=== PATIENT | male | born 1940 | race Caucasian/White ===

== ENCOUNTER → 2017-01-30 11:25 | Outpatient (CLI) | payer MEDICARE ==
[2013-03-05 11:01] VITALS: BMI 33.0
== END | disposition home or self-care (01) ==
LOC: D.MRI 11:25
DX: M51.36 Other intervertebral disc degeneration, lumbar region (principal)

== ENCOUNTER → 2018-12-18 09:34 | Outpatient (CLI) | payer MEDICARE ==
[2013-03-05 11:01] VITALS: BMI 33.0
== END | disposition home or self-care (01) ==
LOC: D.HCCARDIO 12-04 10:00
DX: I25.10 Atherosclerotic heart disease of native coronary artery without angina pectoris (principal)

== ENCOUNTER → 2019-01-23 10:40 | Outpatient (CLI) | payer MEDICARE ==
[~2019-01-23] VITALS: Ht 177.8 cm; Wt 104.5 kg
--- NOTE | ~2019-01-23 | HEMODYNAMI ---
PATIENT:TYLER LALA MEDICAL RECORD: [id number] : 40 LOCATION:D.CAT ADMISSION DATE: 01/23/19 Generatedon:01/23/201913:42 Patient name: TYLER LALA Patient #: [id number] SSN: : 1940 Date of study: 01/23/2019 Page: Of Hemodynamic Procedure Report Patient Data Patient Demographics Procedure consent was obtained First Name: TYLER Gender: Male Last Name: DAI : 1940 [facility] Initial: N Age: 78 year(s) Patient #: [id number] Race: Unknown Additional ID: [id number] Contact details [address]: [address] [place] [address] State: [place] City: [place] Zip code: [address] Past Medical History Allergies Allergen Reaction Date Comments Reported Other allergy 01/23/2019 N Admission Admission Data Admission Date: 01/23/2019 Admission Time: 10:40 Admit Source: Other Lab Results Lab Result Date: 01/23/2019 Lab Result Time: 0:00 Biochemistry Name Units Result Min Max BUN mg/dl 16 --(---*)-- 7 18 Creatinine mg/dl 0.8 --(-*--)-- 0.6 1.3 CBC Name Units Result Min Max Hemoglobin g/dl 16.5 --(--*-)-- 13.5 17.5 Procedure Procedure Types Cath Procedure Diagnostic Procedure [facility] w/Coronaries PCI Procedure Coronary Stent Coronary Stent Initial Procedure Description Procedure Date Procedure Date: 01/23/2019 Procedure Start Time: 13:11 Procedure End Time: 13:37 Procedure Staff Name Function Jim Flaherty MD Performing Physician Zac Cornelius RT Hospital Nurse Bruna Whittington RT Monitor Emery Bradley RN Nurse Venu Gonzalez RT Scrub Procedure Data Cath Procedure Fluoroscopy Diagnostic fluoroscopy Total fluoroscopy Time: 7.6 time: 7.6 min min Diagnostic fluoroscopy Total fluoroscopy dose: dose: 1297 mGy 1297 mGy Contrast Material Contrast Material Type Amount (ml) Isovue 300 138 Entry Location Entry Primary Successful Side Size Upsize Upsize Entry Closure Succes sful Closure Location (Fr) 1 (Fr) 2 (Fr) Remarks Device Remarks Femoral Right 5 Fr 6 Fr Exoseal artery Short Diagnostic catheters Device Type Used For End Catheter Placement MULTIPACK JL 4.0 5Fr Left Coronary catheter Angiography DIAGNOSTIC AR MOD 5Fr Right Coronary Catheter ([id number]) Angiography DIAGNOSTIC IMT 5Fr SVG Angiography Catheter ([id number]) MULTIPACK Pigtail 5 Fr LV Angiography catheter Procedure Complications No complications Procedure Medications Medication Administration Route Dosage 0.9% NaCl I.V. 100 ml/hr Oxygen etCO2 Nasal cannula 2 l/min Heparin Flush Bag added to field 2 bags (1000units/500ml NS) Lidocaine 2% added to field 20 Versed I.V. 1 mg Fentanyl I.V. 50 mcg Versed I.V. 1 mg Fentanyl I.V. 50 mcg Heparin Bolus I.V. 92289 units Plavix P.O. 600 mg Hemodynamics Rest HGB: 16.5 (g/dl) Heart Rate: 55 (bpm) Pressure Samples Time Site Value (mmHg) Purpose Heart Use Rate(bpm) 13:21 LV 157/2,22 EDP 63 13:22 AO 168/78(115) Pullback 61 13:22 LV 154/6,18 Pullback 61 Gradients Valve Time Site 1 Site 2 Mean SEP/DFP Peak To Heart Use (mmHg) (sec/min) Peak Rate (mmHg) (bpm) Aortic 13:22 LV AO 0 4 0 61 154/6,18 168/78(115) Calculations Valve P-P Mean Valve Index Valve Source Name Gradient Area Flow (cm2) Aortic 0 0 0 0 Snapshots Pre Cath Intra NCS Post Cath Vital Signs Time Heart Resp SPO2 etCO2 NIBP (mmHg) Rhythm Pain Sedation Rate (ipm) (%) (mmHg) Status Level (bpm) 12:55:47 57 10 96 0 152/72(101) NSR 0 (11) 10(A) , No pain 13:00:13 56 16 98 38.5 160/86(136) NSR 0 (11) 10(A) , No pain 13:04:37 56 15 94 40.8 146/83(113) NSR 0 (11) 10(A) , No pain 13:09:46 57 16 96 41.5 161/80(115) NSR 0 (11) 10(A) , No pain 13:14:13 62 14 97 33.4 158/87(129) NSR 0 (11) 10(A) , No pain 13:18:41 64 14 94 41.5 151/79(133) NSR 0 (11) 9(A) , No pain 13:23:07 64 15 96 31.9 152/84(108) NSR 0 (11) 9(A) , No pain 13:27:25 64 16 92 30.4 147/89(108) NSR 0 (11) 9(A) , No pain 13:32:39 64 15 94 31.2 143/80(115) NSR 0 (11) 10(A) , No pain 13:37:38 65 14 98 28.9 162/84(123) NSR 0 (11) 9(A) , No pain Medications Time Medication Route Dose Verified Delivered Reason Note s Effectiveness by by 12:59:52 0.9% NaCl I.V. 100 Emery Emery Per physician ml/hr Kirk Bradley RN RN 13:00:01 Oxygen etCO2 2 Emery Emery for low 02 sats Nasal l/min Kirk Bradley cannula RN RN 13:00:15 Heparin Flush added 2 bags Emery Emery used for Bag to Kirk Bradley procedure (1000units/500ml RN RN NS) 13:00:25 Lidocaine 2% added 20ml Emery Emery for local to vial Kirk Bradley anesthetic RN RN 13:00:54 Versed I.V. 1 mg Emery Emery for sedation Kirk Bradley RN RN 13:01:06 Fentanyl I.V. 50 mcg Emery Emery for sedation Kirk Bradley RN RN 13:12:33 Versed I.V. 1 mg Emery Emery for sedation Kirk Bradley RN RN 13:12:39 Fentanyl I.V. 50 mcg Emery Emery for sedation Kirk Bradley RN RN 13:26:36 Heparin Bolus I.V. 10,500 Emery Emery for units Kirk Bradley anticoagulation RN RN 13:37:08 Plavix P.O. 600 mg Emery Emery for Kirk Bradley antiplatelet RN RN therapy Procedure Log Time Note 12:35:26 Admit Source: Other 12:35:57 Diagnostic Cath status Elective 12:36:01 Zac Cornelius RT(R) sent for patient. Start room use. 12:36:03 Time tracking: Regular hours (M-F 7:00 - 5:00) 12:36:12 Plan of Care:Hemodynamics will remain stable., Cardiac rhythm will remain stable., Comfort level will be maintained., Respiratory function will remain adequate., Patient/ family verbilizes understanding of procedure., Procedure tolerated without complication., Recovers from procedure without complications.. 12:42:23 H&P Date Dictated: 01/07/2019 Within 30 days and on chart., H&P Addendum completed by physician on day of procedure. (MUST COMPLETE FOR ALL OUTPATIENTS). 12:44:05 Patient received from Pre/Post Procedure Room to CCL 1 Alert and oriented. Tansferred to table in Supine position. 12:44:06 Warm blankets applied, and qasim hugger turned on for patient comfort. 12:44:07 Correct patient and procedure confirmed by team. 12:44:08 Signed procedure consent form obtained from patient. 12:44:09 ECG and BP/O2 sat monitors applied to patient. 12:44:10 Pre-procedure instructions explained to patient. 12:44:10 Pre-op teaching completed and patient verbalized understanding. 12:44:11 Family in waiting room. 12:44:12 Patient NPO since Midnight. 12:44:23 Patient allergic to Other allergyPCN 12:54:30 Vital chart was started 12:54:31 Baseline sample Acquired. 12:54:35 Rhythm: sinus rhythm 12:54:37 Full Disclosure recording started 12:54:43 Is the patient allergic to Iodine/contrast media? No. 12:54:46 Is patient on blood thinner?No 12:54:48 Patient diabetic? No. 12:54:49 ----Pre-sedation anethsthesia assessment.---- 12:54:52 Previous problem with sedation/anesthesia? No ? 12:54:54 Snore? Yes 12:55:10 Sleep apnea? Yes 12:55:12 Deviated septum? No 12:55:14 Opens mouth fully? Yes 12:55:19 Sticks out tongue? Yes 12:55:21 Airway obstruction? No ? 12:55:28 Dentures? Yes IN TIGHT 12:55:37 Pre procedure: right dorsailis pedis pulse 1+ Palpable, but thready & weak; easily obliterated 12:55:41 Modified Mahamed's test Ulnar < 7 seconds 12:55:44 Patient pain scale 0/10 ?. 12:55:50 IV patent on arrival in left antecubital with 0.9% NaCl at 10ml/hr. 12:56:13 Lab Result : Creatinine 0.8 mg/dl 12::13 Lab Result : BUN 16 mg/dl 12:56:13 Lab Result : Hemoglobin 16.5 g/dl 12:56:18 Lab results completed and on chart. 12:56:21 Right groin area was prepped with chlora-prep and draped in sterile fashion 12:56:22 Alarms reviewed by R. N. 12:56:23 Sharps counted by scrub and verified by R.N. 12:56:24 Physician arrived 12:56:24 --------ALL STOP TIME OUT------ 12:56:24 Final Timeout: patient, procedure, and site verified with staff and physician. All members of the team are in agreement. 12:56:26 Right groin site verified by team. 12:56:30 Maximum allowable Isovue 300 dose 300ml. Physician notified. (300ml for normal creatinines. For patients with creatinine of 1.7 or higher multiply weight(kg) x 5 divided by creatinine.) 12:56:35 Fire Safety Assessment: A--An alcohol-based skin anteseptic being used preoperatively., C--Open oxygen or nitrous oxide is being used., D--An ESU, laser, or fiber-optic light is being used. 12:56:39 Physical assessment completed. ASA score P 2 - A patient with mild systemic disease as per Jim Flaherty MD. 12:56:43 Sedation plan: IV Moderate Sedation Medication:Versed, Fentanyl 12:59:52 0.9% NaCl 100 ml/hr I.V. was administered by Emery Bradley RN; Per physician; 13:00:01 Oxygen 2 l/min etCO2 Nasal cannula was administered by Emery Bradley RN; for low 02 sats; 13:00:15 Heparin Flush Bag (1000units/500ml NS) 2 bags added to field was administered by Emery Bradley RN; used for procedure; 13:00:25 Lidocaine 2% 20ml vial added to field was administered by Emery Bradley RN; for local anesthetic; 13:00:54 Versed 1 mg I.V. was administered by Emery Bradley RN; for sedation; 13:01:06 Fentanyl 50 mcg I.V. was administered by Emery Bradley RN; for sedation; 13:10:28 Use device set Femoral Dx 13:10:30 ACIST Syringe (21764) opened to sterile field. 13:10:30 Bag Decanter (2002S) opened to sterile field. 13:10:30 Medline Cath Pack ([id number]) opened to sterile field. 13:10:31 DIAGNOSTIC WIRE .035 260cm J wire (738341) opened to sterile field. 13:10:32 ACIST Hand Control (79910) opened to sterile field. 13:10:32 ACIST Manifold (31877) opened to sterile field. 13:10:33 DIAGNOSTIC Multipack 5Fr catheter set (UZ5818) opened to sterile field. 13:10:34 Tegaderm 4 x 4 (1626W) opened to sterile field. 13:10:38 SHEATH 5FR Kevil (HQN661) opened to sterile field. 13:11:26 Procedure started. 13:11:47 Local anesthetic to right femoral artery with Lidocaine 2% by Jim Flaherty MD.INITIAL ACCESS ONLY 13:11:50 Zero performed for pressure channel P1 13:12:07 A 5 Fr sheath was inserted into the Right Femoral artery 13:12:16 A MULTIPACK JL 4.0 5Fr catheter was advanced over the wire and used for Left Coronary Angiography. 13:12:33 Versed 1 mg I.V. was administered by Emery Bradley RN; for sedation; 13:12:39 Fentanyl 50 mcg I.V. was administered by Emery Bradley RN; for sedation; 13:14:12 LCA angiography performed. 13:14:15 Catheter exchanged over wire. 13:14:32 A DIAGNOSTIC AR MOD 5Fr Catheter (756242Y) was advanced over the wire and used for Right Coronary Angiography. 13:15:05 SVG to Circ angiography performed. 13:17:10 RCA angiography performed. 13:18:54 Catheter exchanged over wire. 13:19:04 A DIAGNOSTIC IMT 5Fr Catheter ([id number]) was advanced over the wire and used for SVG Angiography. 13:19:11 MAY to LAD angiography performed. 13:20:50 Catheter exchanged over wire. 13:20:58 A MULTIPACK Pigtail 5 Fr catheter was advanced over the wire and used for LV Angiography. 13:21:01 LV angiography performed. 13:21:30 LV gram done using FONTANA 13:21:48 EF : 60 % 13:21:51 Catheter exchanged over wire. 13:23:35 SHEATH 6FR Kevil (OXW865) opened to sterile field. 13:23:36 BMW 300cm Straight [place] 2 wire (0922758) opened to sterile field. 13:23:36 TUBING High Pressure Extension Tubing (Zoomorama) ([id number]) opened to sterile field. 13:23:37 INFLATOR Merit BasixCompak (JA0974) opened to sterile field. 13:23:54 Sheath upsized to a 6 Fr Short. 13:25:01 GUIDE 6FR AR 1.0 catheter (SY4RN05) opened to sterile field. 13:25:12 6 Fr AR 1 guide catheter was inserted over the wire 13:25:27 BMW 2 wire advanced. 13:26:36 Heparin Bolus 10,500 units I.V. was administered by Emery Bradley RN; for anticoagulation; 13:32:03 Place stent Inflation Number: 1 A INTEGRITY OTW 3.5 X 22 stent ([id number]) was prepped and advanced across the Mid RCA. The stent was deployed at 17 EDUARDO for 0:19 (min:sec). 13:33:00 Stent catheter was removed intact over wire. 13:35:32 Procedure type changed to Cath procedure, Diagnostic procedure, LHC, LHC w/Coronaries, PCI procedure, Coronary Stent, Coronary Stent Initial 13:35:54 Sheath removed intact; hemostasis achieved with Exoseal to the Right Femoral artery. 13:35:56 Procedure ended.(Physican Out) 13:36:10 Fluoroscopy time 07.60 minutes. 13:36:16 Fluoroscopy dose: 1297 mGy 13:36:16 Flurop Dose total: 1297 13:36:28 Contrast amount:Isovue 300 138ml. 13:36:30 Sharps counted by scrub and verified by R.N. 13:36:31 Insertion/operative site no bleeding no hematoma. 13:36:34 Post-op/insertion site Right Femoral artery dressed using a 4 x 4 and Tegaderm. 13:36:37 Post right femoral artery:stable 13:36:38 Post Procedure Pulses reassessed and unchanged 13:36:41 Post procedure: right dorsailis pedis pulse 2+ Normal; easily identifiable; not easily obliterated. 13:36:45 Post procedure rhythm: sinus rhythm 13:36:47 Post procedure instruction explained to patient.Patient verbalizes understanding. 13:36:48 Procedure and supply charges have been captured, reviewed, submitted and are correct. 13:36:54 Procedure Complication : No complications 13:37:00 Vital chart was stopped 13:37:00 See physician's report for complete and final results. 13:37:04 Report given to Pre/Post Procedure Room. 13:37:07 Patient transfered to Pre/Post Procedure Room with Stretcher. 13:37:08 Plavix 600 mg P.O. was administered by Emery Bradley RN; for antiplatelet therapy; 13:37:09 Procedure ended. 13:37:09 Full Disclosure recording stopped 13:37:18 ACC-PCI Only Patient was given prescriptions, or instructed by Jim Flaherty MD to start/continue the following medications upon discharge: Plavix 13:37:23 End room use (Document Last) 13:39:10 EXOSEAL 6Fr (EX600) opened to sterile field. Intervention Summary Intervention Notes Time ActionType Lesion and Equipment Action# Pressure Duration Attributes Used 13:32:03 Place stent Mid RCA INTEGRITY 1 17 00:20 OTW 3.5 X 22 stent ([id number]) Device Usage Item Name Manufacture Quantity Catalog Number Hospital Part Current Minim al Lot# / Charge Number Stock Stock Serial# Code ACIST Acist 1 64354 343421 519430 015452 20 Syringe Medical (83350) Systems Inc Bag Microtek 1 661608 35803 074498 5 Decanter Medical Inc. () Medline Medline 1 [id number] 304025 00948 038790 5 Cath Pack ([id number]) DIAGNOSTIC St Hay 1 415590 152903 200872 269920 30 WIRE .035 260cm J wire (509371) ACIST Hand Acist 1 01077 601473 914936 717638 5 Control Medical (72114) Systems Inc ACIST Acist 1 62288 913208 899790 754964 5 Manifold Medical (01498) Systems Inc DIAGNOSTIC Cardinal 1 FO9102 307476 29087 646210 30 Multipack Health 5Fr catheter set (TC6662) Tegaderm 4 3M 1 1626W 969034 115816 219483 5 x 4 (1626W) SHEATH 5FR Terumo 1 RZC483 676789 575936 440141 5 Kevil (ACR926) MULTIPACK Cardinal 1 270716 5 JL 4.0 5Fr Health catheter DIAGNOSTIC Cardinal 1 [id number] 279874 514553 959181 15 AR MOD 5Fr Health Catheter (870751H) DIAGNOSTIC [place] 1 [id number] 964161 143099 20428 5 IMT 5Fr Scientific Catheter ([id number]) MULTIPACK Cardinal 1 887453 5 Pigtail 5 Health Fr catheter SHEATH 6FR Terumo 1 TOE647 943405 482126 122415 40 Kevil (VUJ563) BMW 300cm [place] 1 8075864 500156 274069 702322 5 Straight Vascular [place] 2 wire (9279245) TUBING High Merit 1 [id number] 745836 03347 178733 10 Pressure Medical Extension Tubing (Flaherty) ([id number]) INFLATOR Merit 1 ZR6511 819701 412601 235693 15 Merit Medical BasixCompak (JX4044) GUIDE 6FR Medtronic 1 IQ9DB57 534221 56508 832517 1 AR 1.0 catheter (VP3KE63) INTEGRITY Medtronic 1 [id number] 136230 643873 911709 3 [id number] OTW 3.5 X 22 stent ([id number]) EXOSEAL 6Fr Cardinal 1 EX600 157066 399935 770018 10 (EX600) Health Signature Audit [place] Stage Time Signature Unsigned Intra-Procedure 01/23/2019 Zac CALLAWAY(Dante) 1:42:16 PM Signatures Monitor : Bruna Signature : Counts RT Date : Time : [facility] [address] [place] [address]
[~2019-01-23 10:40] MED LIST: BAYER CHEWABLE81 MG PO; FUROSEMIDE20 MG PO; LOSARTAN/HCT TAB 50-; NORVASC5 MG PO; OMEPRAZOLE40 MG PO; PLAVIX75 MG PO; TENORMIN50 MG PO; ZOCOR10 MG PO; ZOLOFT50 MG PO
[2019-01-23 11:07] VITALS: BP 145/81; Ht 177.8 cm; Wt 104.5 kg
[2019-01-23 11:15] LABS: BASOPHILS 0.3 % (0-2); EOSINOPHILS 1.9 % (0-7); HEMATOCRIT 48.3 % (42.0-54.0); HEMOGLOBIN 16.5 g/dL (13.5-17.5); IMMATURE GRANULOCYTES 0.4 % (0-5); LYMPHOCYTES 17.6 % (15-50); MCH 31.5 pg (26.0-34.0); MCHC 34.2 g/dL (31.0-37.0); MCV 92.4 fL (80.0-100.0); MEAN PLATELET VOLUME 9.7 fL (7.4-10.4); MONOCYTES 7.2 % (2-11); NEUTROPHILS 72.6 % (40-80); PLATELET COUNT 127 10x3/uL (130-400); RBC 5.23 10x6/uL (4.20-6.10); RDW 13.4 % (11.5-14.5); WBC 7.9 10x3/uL (4.8-10.8)
[2019-01-23 11:29] LABS: CALC OSMOLALITY 281 mosm/kg (275-300); CARBON DIOXIDE 28.6 mmol/L (21.0-32.0); CHLORIDE - SERUM 106 mmol/L (98-107); CREATININE - SERUM 0.8 mg/dL (0.6-1.3); GLUCOSE 103 mg/dL (74-106); POTASSIUM - SERUM 3.7 mmol/L (3.5-5.1); SODIUM 141 mmol/L (136-145); UREA NITROGEN 16 mg/dL (7-18); eGFR NON AFRICAN AMERICAN > 90 mL/min (90-120)
--- NOTE | 2019-01-23 14:05 | NUR ---
RIGHT GROIN DRESSING C/D/I. NO S/S OF HEMATOMA NOTED. RIGHT PEDAL PULSE PALPABLE. VSS.
--- NOTE | 2019-01-23 14:35 | NUR ---
RIGHT GROIN DRESSING C/D/I. NO S/S OF HEMATOMA NOTED. RIGHT PEDAL PULSE PALPABLE. PT VOIDED IN URINAL 300CC OF CLEAR YELLOW URINE. NO OTHER NEEDS AT THIS TIME.
--- NOTE | 2019-01-23 15:06 | NUR ---
RIGHT GROIN DRESSING C/D/I. NO S/S OF HEMATOMA NOTED. VSS. NO NEEDS AT THIS TIME.
--- NOTE | 2019-01-23 15:35 | NUR ---
RIGHT GROIN DRESSING C/D/I. NO S/S OF HEMATOMA NOTED. RIGHT PEDAL PULSE PALPABLE. NO NEEDS AT THIS TIME. VSS.
--- NOTE | 2019-01-23 16:45 | NUR ---
PT'S HEAD OF BED INC TO 30 DEGREES. PT TOLERATED WELL. RIGHT GROIN DRESSING C/D/I. NO S/S OF HEMATOMA NOTED. VSS. PT SET UP WITH SANDWICH TRAY AND DRINK. DENIES NAUSEA. FAMILY AT BEDSIDE. CALL LIGHT WITHIN REACH.
--- NOTE | 2019-01-23 17:15 | NUR ---
LEFT ARM PIV D/C'D WITH CATH TIP INTACT. PT TOLERATED WELL. RIGHT GROIN DRESSING C/D/I. NO S/S OF HEMATOMA. PT INSTRUCTED TO GET DRESSED. AT BEDSIDE TO ASSIST.
--- NOTE | 2019-01-23 17:30 | NUR ---
DISCUSSED DISCHARGE INSTRUCTIONS WITH PT AND PT'S FAMILY. THEY VOICED UNDERSTANDING.
--- NOTE | 2019-01-23 17:40 | NUR ---
PT TAKEN OUT TO VEHICLE BY WHEELCHAIR. NO S/S OF DISTRESS NOTED. ALL BELONGINGS AND DISCHARGE INSTRUCTIONS IN HAND.
== END | disposition home or self-care (01) ==
LOC: D.CATH 10:40
PROVIDERS: ATTEND Internal Medicine Cardiovascular Disease
DX: I25.110 Atherosclerotic heart disease of native coronary artery with unstable angina pectoris (principal); Z95.1 Presence of aortocoronary bypass graft; Z01.812 Encounter for preprocedural laboratory examination

== ENCOUNTER → 2019-07-09 07:51 | Outpatient (CLI) | payer MEDICARE ==
[2019-01-23 11:07] VITALS: BMI 33.0
[~2019-07-09 07:51] MED LIST changes: +COUMADIN6 MG PO; +ELIQUIS5 MG PO; +LOVENOX INJ100 MG/ML SC
== END | disposition home or self-care (01) ==
LOC: D.CT 07:51
PROVIDERS: ATTEND Family Medicine
DX: R06.02 Shortness of breath (principal)

== ENCOUNTER → 2019-07-12 14:13 | Outpatient (CLI) | payer MEDICARE ==
[2019-01-23 11:07] VITALS: BMI 33.0
[2019-07-12 16:29] LABS: CREATININE - SERUM 0.9 mg/dL (0.6-1.3)
== END | disposition home or self-care (01) ==
LOC: D.US 14:13
PROVIDERS: ATTEND Internal Medicine Pulmonary Disease
DX: I26.99 Other pulmonary embolism without acute cor pulmonale (principal)

== ENCOUNTER 2019-07-12 17:26 | Inpatient (IN) | payer MEDICARE ==
[~2019-07-12] VITALS: Ht 177.8 cm; Wt 103.2 kg
[~2019-07-12 17:26] MED LIST changes: -COUMADIN6 MG PO; -ELIQUIS5 MG PO; -LOVENOX INJ100 MG/ML SC
[2019-07-12 18:23] LABS: BASOPHILS 0.2 % (0-2); HEMATOCRIT 49.1 % (42.0-54.0); HEMOGLOBIN 16.6 g/dL (13.5-17.5); IMMATURE GRANULOCYTES 0.5 % (0-5); LYMPHOCYTES 20.7 % (15-50); MCH 31.3 pg (26.0-34.0); MCHC 33.8 g/dL (31.0-37.0); MCV 92.6 fL (80.0-100.0); MEAN PLATELET VOLUME 10.2 fL (7.4-10.4); MONOCYTES 10.6 % (2-11); PLATELET COUNT 115 10x3/uL (130-400); RDW 13.9 % (11.5-14.5); WBC 9.5 10x3/uL (4.8-10.8)
[2019-07-12 18:41] LABS: ALBUMIN 2.9 g/dL (3.4-5.0); ALKALINE PHOSPHATASE 95 U/L (46-116); ALT (SGPT) 22 U/L (10-68); CALC OSMOLALITY 282 mosm/kg (275-300); CALCIUM 10.2 mg/dL (8.5-10.1); CARBON DIOXIDE 30.2 mmol/L (21.0-32.0); CHLORIDE - SERUM 104 mmol/L (98-107); CREATININE - SERUM 0.8 mg/dL (0.6-1.3); GLUCOSE 100 mg/dL (74-106); POTASSIUM - SERUM 3.8 mmol/L (3.5-5.1); SODIUM 142 mmol/L (136-145); UREA NITROGEN 12 mg/dL (7-18); eGFR NON AFRICAN AMERICAN > 90 mL/min (90-120)
[2019-07-12 18:52] LABS: APTT 27.3 SECONDS (22.8-39.4); INR 1.08 (0.85-1.17); PROTIME 13.5 SECONDS (11.6-15.0)
[2019-07-12 20:34] VITALS: BP 148/80; Ht 177.8 cm; Wt 103.2 kg
[2019-07-12 20:38] VITALS: BP 148/80
[2019-07-12 23:15] VITALS: BP 127/70
[2019-07-13 04:30] VITALS: BP 134/82
[2019-07-13 05:25] LABS: BASOPHILS 0.4 % (0-2); EOSINOPHILS 2.8 % (0-7); HEMATOCRIT 45.1 % (42.0-54.0); HEMOGLOBIN 15.2 g/dL (13.5-17.5); IMMATURE GRANULOCYTES 0.7 % (0-5); LYMPHOCYTES 22.3 % (15-50); MCH 30.8 pg (26.0-34.0); MCHC 33.7 g/dL (31.0-37.0); MCV 91.5 fL (80.0-100.0); MEAN PLATELET VOLUME 9.6 fL (7.4-10.4); MONOCYTES 11.3 % (2-11); NEUTROPHILS 62.5 % (40-80); PLATELET COUNT 105 10x3/uL (130-400); RBC 4.93 10x6/uL (4.20-6.10); RDW 13.5 % (11.5-14.5)
[2019-07-13 05:26] LABS: WBC 5.4 10x3/uL (4.8-10.8)
[2019-07-13 05:34] LABS: ALBUMIN 2.6 g/dL (3.4-5.0); ALKALINE PHOSPHATASE 85 U/L (46-116); ALT (SGPT) 17 U/L (10-68); BILIRUBIN - TOTAL 0.83 mg/dL (0.2-1.3); CALC OSMOLALITY 284 mosm/kg (275-300); CALCIUM 9.9 mg/dL (8.5-10.1); CARBON DIOXIDE 28.7 mmol/L (21.0-32.0); CHLORIDE - SERUM 108 mmol/L (98-107); CREATININE - SERUM 0.7 mg/dL (0.6-1.3); GLUCOSE 120 mg/dL (74-106); MAGNESIUM - SERUM 2.2 mg/dL (1.8-2.4); PHOSPHOROUS 2.7 mg/dL (2.5-4.9); POTASSIUM - SERUM 3.3 mmol/L (3.5-5.1); PROTEIN - SERUM 5.4 g/dL (6.4-8.2); SODIUM 143 mmol/L (136-145); UREA NITROGEN 10 mg/dL (7-18); eGFR NON AFRICAN AMERICAN > 90 mL/min (90-120)
[2019-07-13 09:02] VITALS: BP 123/59
--- NOTE | 2019-07-13 10:10 | MORECARE ---
CASE MANAGEMENT DISCHARGE SUMMARY PATIENT: TYLER LALA UNIT: [id number] ADM DATE: 07/12/19 AGE: 79 : 40 SEX: M ROOM/BED: D.2781 AUTHOR: ROBINSON ZAPATA PHYSICIAN: REFERRING PHYSICIAN: JAMARI DEL REAL MD DATE OF SERVICE: 07/13/19 Discharge Plan Patient Name: TYLER LALA Facility: [facility]:[place] : 1940 Planned Disposition: Home Anticipated Discharge Date: 07/16/19 Discharge Date: Expected LOS: 4 Initial Reviewer: [email or web address] Initial Review Date: 07/12/2019 Generated: 07/13/19 11:10 am DCP- Discharge Planning Updated by [email or web address]: Shadia Jacob on 07/13/19 9:[address] Patient Name: TYLER LALA Admission Status: ER Accout number: [id number] Admission Date: 07-12-2019 : 1940 Admission Diagnosis: Attending: JAMARI DEL REAL Current LOS: 1 Anticipated DC Date: 07-16-2019 Planned Disposition: Home Primary Insurance: MEDICARE A & B DC PLAN: Home with if medically able. ANTICIPATED DC NEEDS: Unsure at this time. Stated it depends on how he is doing medically. CM met with patient to complete initial dc planning assessment. CM educated patient on the CM role and verbal consent given by patient to complete assessment. CM verified patient's address, phone number, and emergency contact phone numbers. Patient lives at home with his and reports he is independent in his care at home. At discharge patient stated he couldn't answer this question until he knows how he is doing medically. CM discussed availability of home health, rehab services, and medical equipment. Patient is unsure what discharge needs he will have at this time. Patient reports if he goes home his will transport him home at time of discharge. CM will continue to follow and will assist as needed with dc plans/needs. Youth Development Specialist: Shadia Jacob RN, [facility] DCPIA - Discharge Planning Initial Assessment Updated by [email or web address]: Shadia Jacob on 07/13/19 10:07 am * Is the patient Alert and Oriented? Yes * How many steps to enter\exit or inside your home? one * PCP Dr. Ofelia Cheney and Dr. Dominique * Pharmacy [facility] - [facility] * Preadmission Environment Home with Family * ADLs Independent * Equipment Cane CPAP Nebulizer Oxygen Rolling Walker Wheelchair * Other Equipment [facility] - For DME needs. * List name and contact numbers for known caregivers / representatives who currently or will assist patient after discharge: Rosetta Lala - - [phone] * Verbal permission to speak to the caregivers and representatives has been obtained from the patient. Yes * Community resources currently utilized None * Additional services required to return to the preadmission environment? No * Can the patient safely return to the preadmission environment? Yes * Has this patient been hospitalized within the prior 30 days at any hospital? No Patient Name: TYLER LALA Page 00091 at 1010 All edits/amendments must be made on the electronic document DICTATION DATE: 07/13/19 1010 QUALIFICATION ENGINEER: ANGELA 07/13/19 1010 RPT#: [id number] DC DATE: STATUS: ADM IN [facility] [address] [place] [address] END OF REPORT
[2019-07-13 17:47] VITALS: BP 129/75
[2019-07-13 20:00] VITALS: BP 146/72
[2019-07-13 20:35] VITALS: BP 133/74
[2019-07-14] VITALS: BP 150/75
[2019-07-14 04:00] VITALS: BP 142/78
[2019-07-14 04:43] LABS: BASOPHILS 0.4 % (0-2); EOSINOPHILS 2.3 % (0-7); HEMATOCRIT 45.2 % (42.0-54.0); HEMOGLOBIN 15.3 g/dL (13.5-17.5); IMMATURE GRANULOCYTES 0.4 % (0-5); LYMPHOCYTES 18.2 % (15-50); MCH 31.1 pg (26.0-34.0); MCHC 33.8 g/dL (31.0-37.0); MCV 91.9 fL (80.0-100.0); MEAN PLATELET VOLUME 9.9 fL (7.4-10.4); MONOCYTES 8.8 % (2-11); NEUTROPHILS 69.9 % (40-80); PLATELET COUNT 117 10x3/uL (130-400); RBC 4.92 10x6/uL (4.20-6.10); RDW 13.7 % (11.5-14.5); WBC 5.6 10x3/uL (4.8-10.8)
[2019-07-14 04:56] LABS: CALC OSMOLALITY 285 mosm/kg (275-300); CARBON DIOXIDE 26.7 mmol/L (21.0-32.0); CHLORIDE - SERUM 109 mmol/L (98-107); CREATININE - SERUM 0.6 mg/dL (0.6-1.3); GLUCOSE 120 mg/dL (74-106); POTASSIUM - SERUM 3.7 mmol/L (3.5-5.1); SODIUM 144 mmol/L (136-145); eGFR NON AFRICAN AMERICAN > 90 mL/min (90-120)
[2019-07-14 05:01] LABS: UREA NITROGEN 6 mg/dL (7-18)
[2019-07-14 08:00] VITALS: BP 139/66
[2019-07-14 09:21] LABS: APPEARANCE CLEAR (CLEAR); BILIRUBIN NEGATIVE (NEGATIVE); COLOR YELLOW (YELLOW); GLUCOSE NEGATIVE (NEGATIVE); KETONE NEGATIVE (NEGATIVE); NITRITE NEGATIVE (NEGATIVE); PROTEIN NEGATIVE (NEGATIVE); SPECIFIC GRAVITY 1.005 (1.005-1.020); UROBILINOGEN NORMAL (NORMAL)
[2019-07-14 12:30] VITALS: BP 129/70
[2019-07-14 16:30] VITALS: BP 139/74
[2019-07-14 20:00] VITALS: BP 160/67
[2019-07-15] VITALS: BP 161/93
[2019-07-15 04:00] VITALS: BP 126/64
[2019-07-15 05:33] LABS: BASOPHILS 0.4 % (0-2); EOSINOPHILS 3.5 % (0-7); HEMATOCRIT 45.1 % (42.0-54.0); HEMOGLOBIN 15.1 g/dL (13.5-17.5); IMMATURE GRANULOCYTES 0.2 % (0-5); LYMPHOCYTES 20.8 % (15-50); MCHC 33.5 g/dL (31.0-37.0); MCV 92.6 fL (80.0-100.0); MEAN PLATELET VOLUME 9.7 fL (7.4-10.4); MONOCYTES 9.7 % (2-11); NEUTROPHILS 65.4 % (40-80); PLATELET COUNT 127 10x3/uL (130-400); RBC 4.87 10x6/uL (4.20-6.10); WBC 5.5 10x3/uL (4.8-10.8)
[2019-07-15 06:17] LABS: CALC OSMOLALITY 282 mosm/kg (275-300); CALCIUM 10.2 mg/dL (8.5-10.1); CARBON DIOXIDE 27.4 mmol/L (21.0-32.0); CHLORIDE - SERUM 107 mmol/L (98-107); CREATININE - SERUM 0.7 mg/dL (0.6-1.3); GLUCOSE 109 mg/dL (74-106); POTASSIUM - SERUM 3.4 mmol/L (3.5-5.1); SODIUM 142 mmol/L (136-145); UREA NITROGEN 9 mg/dL (7-18); eGFR NON AFRICAN AMERICAN > 90 mL/min (90-120)
[2019-07-15 08:25] VITALS: BP 141/73
[2019-07-15 12:22] VITALS: BP 128/73
[2019-07-15 16:35] VITALS: BP 120/71
[2019-07-15 20:00] VITALS: BP 133/73
[2019-07-16 00:01] VITALS: BP 123/70
[2019-07-16 04:00] VITALS: BP 138/74
[2019-07-16 06:31] LABS: CALC OSMOLALITY 283 mosm/kg (275-300); CALCIUM 10.3 mg/dL (8.5-10.1); CARBON DIOXIDE 29.7 mmol/L (21.0-32.0); CHLORIDE - SERUM 109 mmol/L (98-107); CREATININE - SERUM 0.7 mg/dL (0.6-1.3); GLUCOSE 122 mg/dL (74-106); SODIUM 143 mmol/L (136-145); UREA NITROGEN 8 mg/dL (7-18); eGFR NON AFRICAN AMERICAN > 90 mL/min (90-120)
[2019-07-16 06:52] LABS: BASOPHILS 0.3 % (0-2); EOSINOPHILS 3.5 % (0-7); HEMATOCRIT 44.9 % (42.0-54.0); IMMATURE GRANULOCYTES 0.3 % (0-5); LYMPHOCYTES 17.6 % (15-50); MCH 30.9 pg (26.0-34.0); MCHC 33.4 g/dL (31.0-37.0); MCV 92.4 fL (80.0-100.0); MEAN PLATELET VOLUME 10.1 fL (7.4-10.4); MONOCYTES 8.4 % (2-11); NEUTROPHILS 69.9 % (40-80); PLATELET COUNT 135 10x3/uL (130-400); RBC 4.86 10x6/uL (4.20-6.10); RDW 13.8 % (11.5-14.5); WBC 5.7 10x3/uL (4.8-10.8)
[2019-07-16 08:00] VITALS: BP 139/83
[2019-07-16 12:00] VITALS: BP 110/70
[2019-07-16] MEDS ORDERED: ELIQUIS5 MG PO (12:18)
--- NOTE | 2019-07-17 08:02 | MORECARE ---
CASE MANAGEMENT DISCHARGE SUMMARY PATIENT: TYLER LALA UNIT: [id number] ADM DATE: 07/12/19 AGE: 79 : 40 SEX: M ROOM/BED: D.2862 AUTHOR: [email or web address] PHYSICIAN: REFERRING PHYSICIAN: JAMARI DEL REAL MD DATE OF SERVICE: 07/17/19 Discharge Plan Patient Name: TYLER LALA Facility: [facility]:[place] : 1940 Planned Disposition: Home Anticipated Discharge Date: 07/16/19 Discharge Date: 07/16/2019 Expected LOS: 4 Initial Reviewer: [email or web address] Initial Review Date: 07/12/2019 Generated: 07/17/19 9:01 am DCP- Discharge Planning Updated by [email or web address]: Shadia Jacob on 07/13/19 9:[address] Patient Name: TYLER LALA Admission Status: ER Accout number: [id number] Admission Date: 07-12-2019 : 1940 Admission Diagnosis: Attending: JAMARI DEL REAL Current LOS: 1 Anticipated DC Date: 07-16-2019 Planned Disposition: Home Primary Insurance: MEDICARE A & B DC PLAN: Home with if medically able. ANTICIPATED DC NEEDS: Unsure at this time. Stated it depends on how he is doing medically. CM met with patient to complete initial dc planning assessment. CM educated patient on the CM role and verbal consent given by patient to complete assessment. CM verified patient's address, phone number, and emergency contact phone numbers. Patient lives at home with his and reports he is independent in his care at home. At discharge patient stated he couldn't answer this question until he knows how he is doing medically. CM discussed availability of home health, rehab services, and medical equipment. Patient is unsure what discharge needs he will have at this time. Patient reports if he goes home his will transport him home at time of discharge. CM will continue to follow and will assist as needed with dc plans/needs. Social Service Assistant: Shadia Jacob RN, [facility] DCPIA - Discharge Planning Initial Assessment Updated by [email or web address]: Shadia Jacob on 07/13/19 10:07 am * Is the patient Alert and Oriented? Yes * How many steps to enter\exit or inside your home? one * PCP Dr. Ofelia Cheney and Dr. Dominique * Pharmacy [facility] 7 - [facility] * Preadmission Environment Home with Family * ADLs Independent * Equipment Cane CPAP Nebulizer Oxygen Rolling Walker Wheelchair * Other Equipment [facility] - For DME needs. * List name and contact numbers for known caregivers / representatives who currently or will assist patient after discharge: Rosetta Lala - - [phone] * Verbal permission to speak to the caregivers and representatives has been obtained from the patient. Yes * Community resources currently utilized None * Additional services required to return to the preadmission environment? No * Can the patient safely return to the preadmission environment? Yes * Has this patient been hospitalized within the prior 30 days at any hospital? No Last DP export: 07/13/19 9:10 a Patient Name: TYLER LALA Page 67981 at 0802 All edits/amendments must be made on the electronic document DICTATION DATE: 07/17/19800 CAPTAIN WAITER: ANGELA 07/17/19800 RPT#: [id number] DC DATE:07/16/19 STATUS: DIS IN [facility] [address] [place] [address] END OF REPORT
[2019-07-17 11:10] LABS: HAPTOGLOBIN 170 mg/dL (34-200)
[2019-07-17 12:09] LABS: ACLA - IGG AB <9 GPL U/mL (0-14); ACLA - IGM AB <9 MPL U/mL (0-12)
[2019-07-17 13:10] LABS: ANA REFLEX - DIRECT Negative (Negative)
[2019-07-18 10:11] LABS: PROTEIN S - FREE 73 % (57-157); PROTEIN S - TOTAL 84 % (60-150)
[2019-07-18 11:10] LABS: PROTEIN S - FREE 76 % (57-157); PROTEIN S - FUNCTIONAL 89 % (63-140); PROTEIN S - TOTAL 76 % (60-150)
[2019-07-18 12:10] LABS: LUPUS - INTERPRETATION Comment: (()); LUPUS - THROMBIN TIME 19.8 sec (0.0-23.0); LUPUS - dRVVT 40.2 sec (0.0-47.0); PTT-LA 44.3 sec (0.0-51.9)
[2019-07-19 15:10] LABS: ANCA - ANTIMYELOPEROXIDASE <9.0 U/mL (0.0-9.0); ANCA - ANTIPROTEINASE 3 <3.5 U/mL (0.0-3.5); ANCA - ATYPICAL <1:20 titer (Neg:<1:20); ANCA - CYTOPLASMIC <1:20 titer (Neg:<1:20); ANCA - PERINUCLEAR <1:20 titer (Neg:<1:20)
[2019-07-19 16:08] LABS: FACTOR II DNA ANALYSIS Negative (())
[2019-07-24 03:07] LABS: PROTEIN C - ANTIGEN 112 % (60-150); PROTEIN C - FUNCTIONAL 113 % (73-180)
== END 2019-07-16 14:58 | disposition home or self-care (01) | DRG 175 ==
LOC: D.ER 17:26 → D.M2 19:15 → D.SDCHOLD 07-16 13:50 → D.M2 07-16 13:50
PROVIDERS: Family Medicine; Internal Medicine Pulmonary Disease; ADMIT Internal Medicine Nephrology; ATTEND Internal Medicine Nephrology
DX: I26.99 Other pulmonary embolism without acute cor pulmonale (principal); J96.21 Acute and chronic respiratory failure with hypoxia; I82.411 Acute embolism and thrombosis of right femoral vein; I82.431 Acute embolism and thrombosis of right popliteal vein; J98.11 Atelectasis; I10 Essential (primary) hypertension; K21.9 Gastro-esophageal reflux disease without esophagitis; I25.10 Atherosclerotic heart disease of native coronary artery without angina pectoris; E87.6 Hypokalemia; E66.9 Obesity, unspecified; N40.0 Benign prostatic hyperplasia without lower urinary tract symptoms; K58.9 Irritable bowel syndrome, unspecified

== ENCOUNTER 2019-07-21 07:17 | Inpatient (IN) | payer MEDICARE ==
[~2019-07-21] VITALS: Ht 177.8 cm; Wt 98.9 kg
--- NOTE | ~2019-07-21 | HEMODYNAMI ---
PATIENT:TYLER LALA MEDICAL RECORD: [id number] : 40 LOCATION:D.SD D.2228 ADMISSION DATE: 07/21/19 Generatedon:07/22/201911:41 Patient name: TYLER LALA Patient #: [id number] SSN: : 1940 Date of study: 07/22/2019 Page: Of Hemodynamic Procedure Report Patient Data Patient Demographics Procedure consent was obtained First Name: TYLER Gender: Male Last Name: DAI : 1940 Middle Initial: N Age: 79 year(s) Patient #: [id number] Race: Unknown Additional ID: [id number] Contact details [address]: [address] [place] [address] State: [place] City: [place] Zip code: [address] Past Medical History Allergies Allergen Reaction Date Comments Reported Other allergy 01/23/2019 PCN Penicillins 07/22/2019 Admission Admission Data Admission Date: 07/21/2019 Admission Time: 11:57 Room #: D.2228 Height (in.): 70 BSA: 2.17 (m2) Height (cm.): 177.8 BMI: 31.28 (kg/m2) Weight (lbs.): 218 Weight (kg.): 98.88 Procedure Procedure Types Cath Procedure Peripheral Cath Diagnostic Procedure Sap Ppm Consultant Peripheral Procedures Venography IVC/SVC Inferior Venacava Filter Procedure Description Procedure Date Procedure Date: 07/22/2019 Procedure Start Time: 11:06 Procedure Staff Name Function Amarjit Meyer MD Performing Physician Kylie Bhatt RT [place]in Cleaning Supervisor Huma Cortez RN Nurse Lexi Atwood RN Nurse Chris Campos RT Scrub Procedure Data Cath Procedure Fluoroscopy Diagnostic fluoroscopy Total fluoroscopy Time: 3.3 time: 3.3 min min Diagnostic fluoroscopy Total fluoroscopy dose: 426 dose: 426 mGy mGy Contrast Material Contrast Material Type Amount (ml) Isovue 300 85 Procedure Medications Medication Administration Route Dosage Heparin Flush Bag added to field 2 bags (1000units/500ml NS) Lidocaine 1% added to field 20 Fentanyl I.V. 50 mcg Versed I.V. 1 mg Versed I.V. 0.5 mg Fentanyl I.V. 25 mcg Hemodynamics Rest BSA: 2.17 (m2) O2 Consumption: Estimated: 252.85 (ml/min) O2 Consumption indexed : Estimated:116.52 (ml/min/m) Heart Rate: 76 (bpm) Snapshots Pre Cath Intra NCS Post Cath Vital Signs Time Heart Resp SPO2 etCO2 NIBP (mmHg) Rhythm Pain Sedation Rate (ipm) (%) (mmHg) Status Level (bpm) 11:05:58 83 24 98 29.3 138/86(129) NSR 0 (11) 10(A) , No pain 11:10:12 74 25 98 27 137/81(126) NSR 0 (11) 10(A) , No pain 11:14:24 75 98 18 133/90(117) NSR 0 (11) 8(A) , No pain 11:18:34 74 18 97 4.5 141/87(119) NSR 0 (11) 8(A) , No pain 11:22:48 73 97 9.7 128/83(111) NSR 0 (11) 8(A) , No pain 11:26:58 74 97 12 127/82(116) NSR 0 (11) 8(A) , No pain 11:31:04 73 23 98 21.8 139/92(128) NSR 0 (11) 8(A) , No pain 11:35:18 72 14 96 15.8 131/79(110) NSR 0 (11) 8(A) , No pain 11:39:28 73 21 97 9.7 128/85(114) NSR 0 (11) 8(A) , No pain Medications Time Medication Route Dose Verified Delivered Reason Notes Effec tiveness by by 11:04:20 Heparin Flush added 2 Amarjit used for Bag to bags Meyer procedure (1000units/500ml field DIOR NS) 11:04:33 Lidocaine 1% added 20ml Amarjit used for to vial Meyer procedure field DIOR 11:12:01 Fentanyl I.V. 50 Amarjit Finn for mcg Mitch Cortez RN sedation 11:12:14 Versed I.V. 1 mg Amarjit Finn for Mitch Cortez RN sedation 11:29:04 Versed I.V. 0.5 Amarjit Finn for mg Mitch Cortez RN sedation 11:29:41 Fentanyl I.V. 25 Amarjit Finn for mcg Mitch Cortez RN sedation Procedure Log Time Note 10:29:40 Patient Height : 70 inches 10:29:44 Patient Weight : 218 lbs 10:30:13 Use device set IR Diagnostic 10:30:15 Tegaderm 4 x 4 (1626W) opened to sterile field. 10:30:16 Sterile Angiographic Pack opened to sterile field. 10:30:18 Bag Decanter (2002S) opened to sterile field. 10:30:19 ACIST Manifold (18023) opened to sterile field. 10:30:20 ACIST Hand Control (42819) opened to sterile field. 10:30:21 ACIST Syringe (01799) opened to sterile field. 10:30:39 DOC .035 wire (C71279) opened to sterile field. 10:30:40 PERCUTANEOUS ENTRY 19GA needle opened to sterile field. 10:30:49 - 10:40:07 Time tracking: Regular hours (M-F 7:00 - 5:00) 10:40:15 Plan of Care:Hemodynamics will remain stable., Cardiac rhythm will remain stable., Comfort level will be maintained., Respiratory function will remain adequate., Patient/ family verbilizes understanding of procedure., Procedure tolerated without complication., Recovers from procedure without complications.. 10:40:29 Patient received from Med/Surg to IR Alert and oriented. Tansferred to table in Supine position. 10:40:31 Correct patient and procedure confirmed by team. 10:40:48 Signed procedure consent form obtained from patient. 10:40:57 H&P Date Dictated: 07/22/2019 Within 30 days and on chart.. 10:41:04 Pre-procedure instructions explained to patient. 10:41:05 Pre-op teaching completed and patient verbalized understanding. 10:41:07 Family in waiting room. 10:41:10 Patient NPO since Midnight. 10:41:22 Patient allergic to Penicillins 10:41:25 - 10:41:38 ----Pre-sedation anethsthesia assessment.---- 10:41:50 Patient diabetic? No. 10:41:56 Airway obstruction? Yes cad 10:42:10 Snore? Yes 10:42:14 Sleep apnea? Yes 10:42:21 Deviated septum? No 10:42:26 Opens mouth fully? Yes 10:42:28 Sticks out tongue? Yes 10:42:33 Previous problem with sedation/anesthesia? No ? 10:43:12 IV patent on arrival in left forearm with D5/.45%NaCl at [facility]. 10:58:20 TUBING Contrast Injection High Pressure (ZZN227N) opened to sterile field. 10:58:21 TUBING Contrast Injection High Pressure (ODO532W) opened to sterile field. 11:04:20 Heparin Flush Bag (1000units/500ml NS) 2 bags added to field was administered by ; used for procedure; 11:04:33 Lidocaine 1% 20ml vial added to field was administered by ; used for procedure; 11:04:50 - 11:04:53 ECG and BP/O2 sat monitors applied to patient. 11:04:54 Vital chart was started 11:04:55 Baseline sample Acquired. 11:04:56 Full Disclosure recording started 11:04:57 - 11:05:03 Physician arrived 11:06:22 Hsieh 180 wire (U97595) opened to sterile field. 11:06:29 --------ALL STOP TIME OUT------ 11:06:30 Final Timeout: patient, procedure, and site verified with staff and physician. All members of the team are in agreement. 11:06:43 Procedure started. 11:06:53 Local anesthetic to right IJ vein with Lidocaine 1% by Amarjit Meyer MD.INITIAL ACCESS ONLY 11:12:01 Fentanyl 50 mcg I.V. was administered by Huma Cortez RN; for sedation; 11:12:14 Versed 1 mg I.V. was administered by Huma Cortez RN; for sedation; 11:17:36 ROADRUNNER .035 145 glide wire (F00318) opened to sterile field. 11:22:29 DILATOR, VESSEL 10/20 opened to sterile field. 11:22:31 DILATOR, VESSEL 8/20 opened to sterile field. 11:23:16 GLIDE CATHETER 5FR ANGLED 65cm (CG507) opened to sterile field. 11:25:47 AMPLATZ Super stiff 180cm wire ([id number]) opened to sterile field. 11:29:04 Versed 0.5 mg I.V. was administered by Huma Cortez RN; for sedation; 11:29:41 Fentanyl 25 mcg I.V. was administered by Huma Cortez RN; for sedation; 11:30:04 DILATOR, VESSEL 12/20 opened to sterile field. 11:35:07 Katty Jugular IVC filter was placed below renal veins. 11:35:15 Procedure ended.(Physican Out) 11:35:29 Fluoroscopy time 03.30 minutes. 11:35:33 Flurop Dose total: 426 11:35:33 Fluoroscopy dose: 426 mGy 11:35:47 Contrast amount:Isovue 300 85ml. 11:35:50 Procedure and supply charges have been captured, reviewed, submitted an d are correct. 11:40:52 Report given to Med/Surg. 11:40:58 Patient transfered to Med/Surg with Bed. 11:41:21 Vital chart was stopped Device Usage Item Name Manufacture Quantity Catalog Hospital Part Current Minimal Lot# / Number Charge Number Stock Stock Serial# Code Tegaderm 4 x 3M 1 1626W 132181 [id number] 193891 5 4 (1626W) Sterile Cardinal 1 [id number] 977001 459010 5 Angiographic Health Pack Bag Decanter Microtek 1 2001S 574759 48966 742190 5 (2001S) Medical Inc. ACIST Acist 1 58163 571163 690854 722248 5 Manifold Medical (82063) Systems Inc ACIST Hand Acist 1 40611 760985 438979 528041 5 Control Medical (66440) Systems Inc ACIST Acist 1 80652 790732 052128 608734 20 Syringe Medical (86835) Systems Inc DOC .035 Cook Medical 1 I96073 527372 557407 5 wire (R06615) PERCUTANEOUS Cook Medical 1 V77478 157946 951105 5 9124764 ENTRY 19GA needle TUBING Merit 2 UFU127M 591592 794262 809621 5 [id number] Contrast Medical Injection High Pressure (DAP567L) Hsieh 180 Cook Medical 1 J01724 727688 197776 4459224 5 6133448 wire (B41102) ROADRUNNER Cook Medical 1 T68090 887282 729794 806168 5 2929645 .035 145 glide wire (S92364) DILATOR, Cook Medical 1 K08979 299397 15231 880669 5 VESSEL 10/20 DILATOR, Cook Medical 1 F54045 586465 77768 737148 5 VESSEL 8/20 GLIDE Terumo 1 CG507 733539 508249 5 CATHETER 5FR ANGLED 65cm (CG507) AMPLATZ Winston 1 [id number] 535155 183178 076660 5 Super stiff Scientific 180cm wire ([id number]) DILATOR, Cook Medical 1 M81977 549709 441161 017669 5 0685824 VESSEL 12/20 Signature Audit [place] Stage Time Signature Unsigned Intra-Procedure 07/22/2019 Kylie Bhatt 11:41:17 AM RT(R) [address] [place] [address]
[~2019-07-21 07:17] MED LIST changes: +ELIQUIS5 MG PO
[2019-07-21 07:43] LABS: APPEARANCE TURBID (CLEAR); COLOR RED (YELLOW)
[2019-07-21 07:44] LABS: EPITHELIAL CELLS 0-5 /hpf (0-5); RED CELLS - URINE >50 /hpf (0-5); WHITE CELLS - URINE >50 /hpf (0-5)
[2019-07-21 07:46] LABS: BASOPHILS 0.3 % (0-2); HEMOGLOBIN 15.8 g/dL (13.5-17.5); IMMATURE GRANULOCYTES 0.2 % (0-5); LYMPHOCYTES 17.2 % (15-50); MCH 31.5 pg (26.0-34.0); MCHC 34.3 g/dL (31.0-37.0); MCV 91.6 fL (80.0-100.0); MEAN PLATELET VOLUME 9.6 fL (7.4-10.4); MONOCYTES 8.5 % (2-11); NEUTROPHILS 71.8 % (40-80); PLATELET COUNT 143 10x3/uL (130-400); RBC 5.02 10x6/uL (4.20-6.10); RDW 13.8 % (11.5-14.5); WBC 5.9 10x3/uL (4.8-10.8)
[2019-07-21 07:53] LABS: INR 1.28 (0.85-1.17); PROTIME 15.5 SECONDS (11.6-15.0)
[2019-07-21 09:23] LABS: ALKALINE PHOSPHATASE 99 U/L (46-116); ALT (SGPT) 41 U/L (10-68); BILIRUBIN - TOTAL 0.84 mg/dL (0.2-1.3); CALC OSMOLALITY 280 mosm/kg (275-300); CALCIUM 10.6 mg/dL (8.5-10.1); CARBON DIOXIDE 28.8 mmol/L (21.0-32.0); CHLORIDE - SERUM 105 mmol/L (98-107); CREATININE - SERUM 0.9 mg/dL (0.6-1.3); GLUCOSE 133 mg/dL (74-106); POTASSIUM - SERUM 3.4 mmol/L (3.5-5.1); PROTEIN - SERUM 6.4 g/dL (6.4-8.2); SODIUM 140 mmol/L (136-145); UREA NITROGEN 12 mg/dL (7-18); eGFR NON AFRICAN AMERICAN 86 mL/min (90-120)
--- NOTE | 2019-07-21 11:03 | NUR ---
PT UP TO RESTROOM. CHAMP. 100% OF SANDWICH MEAL.
[2019-07-21 11:38] VITALS: BP 133/80
--- NOTE | 2019-07-21 12:30 | NUR ---
PT ADMITTED WITH GOOD STEADY GAIT. NO COMPLAINTS OF ABDOMINAL PAIN OR DISCOMFORT AT THIS TIME. PT COMPLAINS OF HEMATURIA WHEN VOIDING. LUNGS CTA WITH BOWEL SOUNDS NOTED X4. GOOD ROM OF EXT. X4. ENCOURAGED TO USE CALL LIGHT FOR ASSIST.
[2019-07-21 13:35] VITALS: BP 123/78; BMI 31.3
[2019-07-21 16:38] VITALS: BP 122/82
[2019-07-21 20:00] VITALS: BP 164/95
[2019-07-21 23:48] VITALS: BP 157/93
[2019-07-22 04:00] VITALS: BP 152/85
[2019-07-22 05:07] LABS: BASOPHILS 0.1 % (0-2); EOSINOPHILS 1.7 % (0-7); HEMATOCRIT 49.8 % (42.0-54.0); HEMOGLOBIN 16.8 g/dL (13.5-17.5); IMMATURE GRANULOCYTES 0.3 % (0-5); LYMPHOCYTES 16.4 % (15-50); MCH 31.3 pg (26.0-34.0); MCHC 33.7 g/dL (31.0-37.0); MCV 92.9 fL (80.0-100.0); MEAN PLATELET VOLUME 10.2 fL (7.4-10.4); MONOCYTES 8.8 % (2-11); NEUTROPHILS 72.7 % (40-80); PLATELET COUNT 139 10x3/uL (130-400); RBC 5.36 10x6/uL (4.20-6.10); RDW 13.6 % (11.5-14.5); WBC 6.9 10x3/uL (4.8-10.8)
[2019-07-22 05:27] LABS: ALKALINE PHOSPHATASE 102 U/L (46-116); ALT (SGPT) 35 U/L (10-68); BILIRUBIN - TOTAL 0.69 mg/dL (0.2-1.3); CALC OSMOLALITY 291 mosm/kg (275-300); CALCIUM 10.8 mg/dL (8.5-10.1); CARBON DIOXIDE 31.9 mmol/L (21.0-32.0); CHLORIDE - SERUM 109 mmol/L (98-107); CREATININE - SERUM 0.9 mg/dL (0.6-1.3); GLUCOSE 134 mg/dL (74-106); POTASSIUM - SERUM 3.9 mmol/L (3.5-5.1); PROTEIN - SERUM 6.6 g/dL (6.4-8.2); SODIUM 146 mmol/L (136-145); UREA NITROGEN 10 mg/dL (7-18); eGFR NON AFRICAN AMERICAN 86 mL/min (90-120)
--- NOTE | 2019-07-22 07:35 | NUR ---
PT RESTING IN BED WITH FAMILY AT BEDSIDE. NO ACUTE DISTRESS NOTED AT THIS TIME. PT REPORTS PAIN 11/22 AT THIS TIME. IV TO LEFT FOREARM WITH NS @ 50 ML/HR INFUSING VIA PUMP. SITE WITHOUT REDNESS OR EDEMA. F/C PATENT TO GRAVITY DRAINING FABIÁN URINE. PT NPO FOR UPCOMING PROCEDURE. DENIES FURTHER NEEDS AT THIS TIME. CL WITHIN REACH. ENCOURAGED TO CALL WITH NEEDS. CONTINUE POC
[2019-07-22 07:58] LABS: APTT 30.8 SECONDS (22.8-39.4); INR 1.15 (0.85-1.17); PROTIME 14.2 SECONDS (11.6-15.0)
[2019-07-22 08:37] VITALS: BP 140/91
[2019-07-22 11:55] VITALS: BP 126/88
[2019-07-22 12:41] VITALS: Ht 177.8 cm; Wt 98.9 kg
[2019-07-22 16:05] LABS: APPEARANCE HAZY (CLEAR); BILIRUBIN NEGATIVE (NEGATIVE); COLOR YELLOW (YELLOW); GLUCOSE NEGATIVE (NEGATIVE); KETONE NEGATIVE (NEGATIVE); NITRITE NEGATIVE (NEGATIVE); PROTEIN 1+ mg/dL (NEGATIVE); SPECIFIC GRAVITY 1.015 (1.005-1.020); UROBILINOGEN NORMAL (NORMAL)
[2019-07-22 16:06] LABS: BACTERIA FEW /hpf (NONE SEEN); RED CELLS - URINE 25-50 /hpf (0-5); WHITE CELLS - URINE 0-5 /hpf (0-5)
--- NOTE | 2019-07-22 16:40 | MORECARE ---
CASE MANAGEMENT DISCHARGE SUMMARY PATIENT: TYLER LALA UNIT: [id number] ADM DATE: 07/21/19 AGE: 79 : 40 SEX: M ROOM/BED: D.2228 AUTHOR: ROBINSON ZAPATA PHYSICIAN: REFERRING PHYSICIAN: JAMARI DEL REAL MD DATE OF SERVICE: 07/22/19 Discharge Plan Patient Name: TYLER LALA Facility: [facility]:[place] : 1940 Planned Disposition: Home with Home Health Anticipated Discharge Date: Discharge Date: Expected LOS: Initial Reviewer: [email or web address] Initial Review Date: 07/22/2019 Generated: 07/22/19 5:40 pm External Providers External Provider: [facility] Next Contact Date: Service Request Date: Service Type: Resolution: Reviewer: Comments: Patient Name: TYLER LALA Page 24094 at 1640 All edits/amendments must be made on the electronic document DICTATION DATE: 07/22/19 1640 TERRITORY ACCOUNT EXECUTIVE: ANGELA 07/22/19 [facility] RPT#: [id number] DC DATE: STATUS: ADM IN [facility] [address] [place] [address] END OF REPORT
--- NOTE | 2019-07-22 16:47 | MORECARE ---
CASE MANAGEMENT DISCHARGE SUMMARY PATIENT: TYLER LALA UNIT: [id number] ADM DATE: 07/21/19 AGE: 79 : 40 SEX: M ROOM/BED: D.2228 AUTHOR: JODI,DOC PHYSICIAN: REFERRING PHYSICIAN: JAMARI DEL REAL MD DATE OF SERVICE: 07/22/19 Discharge Plan Patient Name: TYLER LALA Facility: [facility]:[place] : 1940 Planned Disposition: Home with Home Health Anticipated Discharge Date: Discharge Date: Expected LOS: Initial Reviewer: [email or web address] Initial Review Date: 07/22/2019 Generated: 07/22/19 5:47 pm Comments DCP- Discharge Planning Updated by [email or web address]: Georgiana Santana on 07/22/19 3:[address] Patient Name: TYLER LALA Admission Status: ER Accout number: [id number] Admission Date: 07-21-2019 : 1940 Admission Diagnosis:HEMATURIA, UNSPECIFIED Attending: JAMARI DEL REAL Current LOS: 1 Anticipated DC Date: Planned Disposition: Home with Home Health Primary Insurance: MEDICARE A & B Discharge Planning Comments: CM met with patient to complete initial dc planning assessment. CM educated patient on the CM role and verbal consent given by patient to complete assessment. Patient lives at home with his . At discharge patient plans to return and feels this is a safe discharge. CM discussed availability of home health, rehab services, and medical equipment. Patient's states she would like to have home health this time and JOSE for [facility]. I spoke with Becky and clinical faxed. Becky states they can admit him on Monday. CM will continue to follow and will assist as needed with dc plans/needs. Customer Service Associate: Georgiana Santana DCPIA - Discharge Planning Initial Assessment Updated by [email or web address]: Georgiana Santana on 07/22/19 4:43 pm * Is the patient Alert and Oriented? Yes * How many steps to enter\exit or inside your home? 1/0 * PCP Dr. Gilbert * Pharmacy [facility] on [facility] [facility] * Preadmission Environment Home with Family * ADLs Partial Dependent * Partial ADLs (Assistance needed) Ambulation * Equipment Cane CPAP Nebulizer Other Oxygen Rolling Walker Wheelchair * Other Equipment Portable oxygen * List name and contact numbers for known caregivers / representatives who currently or will assist patient after discharge: Rosetta Lala - - [phone] * Verbal permission to speak to the caregivers and representatives has been obtained from the patient. Yes * Community resources currently utilized None * Please name any agencies selected above. DME is [facility] for oxygen * Additional services required to return to the preadmission environment? No * Can the patient safely return to the preadmission environment? Yes * Has this patient been hospitalized within the prior 30 days at any hospital? Yes Coverage Notice Reviewer: [email or web address] Margarita Santana Notice Issued Date-Time: 07/22/2019 16:45 Notice Type: Patient Choice Letter Notice Delivered To: Family Member Relationship to Patient: Spouse Lens Mold Setter Name: Rosetta Delivery Method: HAND - Hand Delivered Karin Days: Prior Verbal Notification: Recipient Understood Notice: Yes Recipient Signature: Yes Med Rec Note Co-signed by Attending: Coverage Notice Comment: [facility] for [facility] Last DP export: 07/22/19 3:40 pm Patient Name: TYLER LALA Page 81011 at 1647 All edits/amendments must be made on the electronic document DICTATION DATE: 07/22/191646 CLERK TO JUSTICE: ANGELA 07/22/191646 RPT#: [id number] DC DATE: STATUS: ADM IN [facility] [address] [place] [address] END OF REPORT
[2019-07-22 17:10] VITALS: BP 144/92
--- NOTE | 2019-07-22 20:00 | NUR ---
ALERT RESTING IN BED, DENIES PAIN OR NEEDS, SEE SHIFT ASSESSMENT, CALL LIGHT IN REACH
[2019-07-22 21:14] VITALS: BP 128/75
[2019-07-23 01:44] VITALS: BP 147/81
[2019-07-23 04:38] VITALS: BP 136/85
[2019-07-23 06:03] LABS: BASOPHILS 0.2 % (0-2); EOSINOPHILS 2.1 % (0-7); HEMATOCRIT 46.3 % (42.0-54.0); HEMOGLOBIN 15.5 g/dL (13.5-17.5); IMMATURE GRANULOCYTES 0.2 % (0-5); LYMPHOCYTES 15.8 % (15-50); MCH 31.1 pg (26.0-34.0); MCHC 33.5 g/dL (31.0-37.0); MCV 92.8 fL (80.0-100.0); MEAN PLATELET VOLUME 10.1 fL (7.4-10.4); MONOCYTES 9.4 % (2-11); NEUTROPHILS 72.3 % (40-80); PLATELET COUNT 130 10x3/uL (130-400); RBC 4.99 10x6/uL (4.20-6.10); RDW 13.6 % (11.5-14.5); WBC 5.8 10x3/uL (4.8-10.8)
[2019-07-23 06:30] LABS: ALBUMIN 2.7 g/dL (3.4-5.0); ALKALINE PHOSPHATASE 97 U/L (46-116); ALT (SGPT) 30 U/L (10-68); BILIRUBIN - TOTAL 0.76 mg/dL (0.2-1.3); CALC OSMOLALITY 286 mosm/kg (275-300); CALCIUM 10.3 mg/dL (8.5-10.1); CARBON DIOXIDE 27.6 mmol/L (21.0-32.0); CHLORIDE - SERUM 108 mmol/L (98-107); CREATININE - SERUM 0.7 mg/dL (0.6-1.3); GLUCOSE 104 mg/dL (74-106); POTASSIUM - SERUM 3.7 mmol/L (3.5-5.1); PROTEIN - SERUM 5.7 g/dL (6.4-8.2); SODIUM 145 mmol/L (136-145); UREA NITROGEN 8 mg/dL (7-18); eGFR NON AFRICAN AMERICAN > 90 mL/min (90-120)
--- NOTE | 2019-07-23 07:10 | NUR ---
REC'D IN BED AWAKE AND ALERT. RESP EVEN AND UNLABORED WITH NO DISTRESS NOTED. CAN EXPRESS NEEDS AND WANTS. NO C/O NOTED OR VOICED. ASSESSMENT COMPLETED. DRESSING CLEAN, DRY, AND INTACT TO RIGHT SIDE OF NECK. C/L IN REACH AT BEDSIDE.
[2019-07-23 08:24] VITALS: BP 136/82
--- NOTE | 2019-07-23 10:40 | NUR ---
[facility] CATH DC AT THIS TIME WITH 200 CC NOTED TO COLLECTION DEVICE.
[2019-07-23 12:19] VITALS: BP 124/67
[2019-07-23 17:03] VITALS: BP 116/57
--- NOTE | 2019-07-23 17:22 | NUR ---
I have reviewed this patient and I concur with the Shift Assessment completed by the Licensed Practical Nurse today this shift.
--- NOTE | 2019-07-23 20:00 | NUR ---
ALERT SITTING UP IN BED RESP UNLABORED, DENIES PAIN, STATES FEELING MUCH BETTER SINCE [place] CATH REMOVED, REPORTS VOIDING WITHOUT DIFFICULTY, SEE SHIFT ASSESSMENT CALL LIGHT IN REACH
[2019-07-23 21:20] VITALS: BP 123/68
[2019-07-24 01:11] VITALS: BP 150/78
--- NOTE | 2019-07-24 05:00 | NUR ---
PT FOUND SITTING ON FLOOR IN BATHROOM DOORWAY STATES I JUST SAT DAOWN IN FLOOR, DENIES PAIN NO VISABLE INJURY, ASSISTED BACK TO BED, URINE NOTED ON FLOOR, POSE MAT PLACED ON BED, SIDE RAILS UPX 2, CALL LIGHT IN REACH, NONSKID SOCKS ON, INSTRUCTED TO CALL BEFORE GETTING UP, STATES OK
[2019-07-24 05:18] VITALS: BP 154/74
--- NOTE | 2019-07-24 05:25 | NUR ---
STEPHANY MARKS NOTIFIED OF PT FALL AND DENIES PAIN AND NO VISABLE INJURY, INSTRUCTED TO MONITOR
--- NOTE | 2019-07-24 05:35 | NUR ---
ATTEMPTED TO CALL BRIA, NO ANSWER MESSAGE LEFT TO CALL
[2019-07-24 05:39] LABS: BASOPHILS 0.5 % (0-2); EOSINOPHILS 4.5 % (0-7); HEMATOCRIT 42.4 % (42.0-54.0); HEMOGLOBIN 14.2 g/dL (13.5-17.5); IMMATURE GRANULOCYTES 0.2 % (0-5); LYMPHOCYTES 29.6 % (15-50); MCH 31.2 pg (26.0-34.0); MCHC 33.5 g/dL (31.0-37.0); MCV 93.2 fL (80.0-100.0); MEAN PLATELET VOLUME 10.1 fL (7.4-10.4); MONOCYTES 10.6 % (2-11); NEUTROPHILS 54.6 % (40-80); PLATELET COUNT 126 10x3/uL (130-400); RBC 4.55 10x6/uL (4.20-6.10); RDW 13.5 % (11.5-14.5); WBC 4.4 10x3/uL (4.8-10.8)
[2019-07-24 05:49] LABS: INR 1.25 (0.85-1.17); PROTIME 15.2 SECONDS (11.6-15.0)
[2019-07-24 06:03] LABS: ALBUMIN 2.5 g/dL (3.4-5.0); ALKALINE PHOSPHATASE 81 U/L (46-116); ALT (SGPT) 26 U/L (10-68); BILIRUBIN - TOTAL 0.37 mg/dL (0.2-1.3); CALC OSMOLALITY 287 mosm/kg (275-300); CALCIUM 10.4 mg/dL (8.5-10.1); CARBON DIOXIDE 30.9 mmol/L (21.0-32.0); CHLORIDE - SERUM 109 mmol/L (98-107); CREATININE - SERUM 0.9 mg/dL (0.6-1.3); GLUCOSE 116 mg/dL (74-106); POTASSIUM - SERUM 3.5 mmol/L (3.5-5.1); PROTEIN - SERUM 5.6 g/dL (6.4-8.2); SODIUM 144 mmol/L (136-145); UREA NITROGEN 12 mg/dL (7-18); eGFR NON AFRICAN AMERICAN 86 mL/min (90-120)
--- NOTE | 2019-07-24 06:43 | NUR ---
CALL TO BRIA NO ANSWER, MESSAGE LEFT TO CALL BACK
--- NOTE | 2019-07-24 07:08 | NUR ---
CALL TO BRIA TAO NO ANSWER MESSAGE LEFT TO RETURN CALL
--- NOTE | 2019-07-24 07:23 | NUR ---
CALL RECIEVED BACK FROM BRIA PT INFORMED OF FALL WITH NO REPORTED INJURY, AND NOW ON FALL PRECAUTIONS WITH RONAK ALARM ON BED
[2019-07-24 09:22] VITALS: BP 120/49
[2019-07-24 14:12] VITALS: BP 128/44
--- NOTE | 2019-07-24 15:07 | NUR ---
I have reviewed this patient and I concur with the Shift Assessment completed by the Licensed Practical Nurse today this shift.
[2019-07-24 16:09] VITALS: BP 124/78
[2019-07-24 20:55] VITALS: BP 126/70
--- NOTE | 2019-07-25 03:23 | NUR ---
PATIENT IN BED RESTING WITH NO NEEDS STATED IV TO LEFT FR, O2 AT 2L VIA N/C ASSTIED UP TO BATHROOM VA STAFF X1. CALL LIGHT AND WATER IN REACH AT BEDSIDE FALL PERCATIONS IN PLACE AND WORKING.
[2019-07-25 05:18] VITALS: BP 134/84
[2019-07-25 06:54] LABS: BASOPHILS 0.3 % (0-2); EOSINOPHILS 4.9 % (0-7); HEMOGLOBIN 14.3 g/dL (13.5-17.5); IMMATURE GRANULOCYTES 0.3 % (0-5); LYMPHOCYTES 25.4 % (15-50); MCH 31.4 pg (26.0-34.0); MCV 92.3 fL (80.0-100.0); MEAN PLATELET VOLUME 10.2 fL (7.4-10.4); MONOCYTES 8.1 % (2-11); PLATELET COUNT 130 10x3/uL (130-400); RBC 4.55 10x6/uL (4.20-6.10); RDW 13.6 % (11.5-14.5); WBC 3.5 10x3/uL (4.8-10.8)
[2019-07-25 06:59] LABS: ALBUMIN 2.5 g/dL (3.4-5.0); ALKALINE PHOSPHATASE 79 U/L (46-116); ALT (SGPT) 21 U/L (10-68); BILIRUBIN - TOTAL 0.35 mg/dL (0.2-1.3); CALC OSMOLALITY 286 mosm/kg (275-300); CALCIUM 9.9 mg/dL (8.5-10.1); CARBON DIOXIDE 29.1 mmol/L (21.0-32.0); CHLORIDE - SERUM 111 mmol/L (98-107); CREATININE - SERUM 0.7 mg/dL (0.6-1.3); GLUCOSE 101 mg/dL (74-106); POTASSIUM - SERUM 3.3 mmol/L (3.5-5.1); PROTEIN - SERUM 5.6 g/dL (6.4-8.2); SODIUM 145 mmol/L (136-145); UREA NITROGEN 6 mg/dL (7-18); eGFR NON AFRICAN AMERICAN > 90 mL/min (90-120)
[2019-07-25 07:09] LABS: PROTIME 17.9 SECONDS (11.6-15.0)
[2019-07-25 07:13] LABS: INR 1.55 (0.85-1.17)
--- NOTE | 2019-07-25 07:30 | NUR ---
REC'D IN BED AWAKE AND ALERT. RESP EVEN AND UNLABORED WITH NO DISTRESS NOTED. CAN EXPRESS NEEDS AND WANTS. NO C/O NOTED OR VOICED. ASSESSMENT COMPLETED. C/L IN REACH AT BEDSIDE.
[2019-07-25 08:12] VITALS: BP 147/78
--- NOTE | 2019-07-25 11:29 | MORECARE ---
CASE MANAGEMENT DISCHARGE SUMMARY PATIENT: TYLER LALA UNIT: [id number] ADM DATE: 07/21/19 AGE: 79 : 40 SEX: M ROOM/BED: D.2228 AUTHOR: JODI,DOC PHYSICIAN: REFERRING PHYSICIAN: JAMARI DEL REAL MD DATE OF SERVICE: 07/25/19 Discharge Plan Patient Name: TYLER LALA Facility: [facility]:[place] : 1940 Planned Disposition: Home with Home Health Anticipated Discharge Date: Discharge Date: Expected LOS: Initial Reviewer: [email or web address] Initial Review Date: 07/22/2019 Generated: 07/25/19 12:29 pm DCP- Discharge Planning Updated by [email or web address]: Georgiana Santana on 07/22/19 3:[address] Patient Name: TYLER LALA Admission Status: ER Accout number: [id number] Admission Date: 07-21-2019 : 1940 Admission Diagnosis:HEMATURIA, UNSPECIFIED Attending: JAMARI DEL REAL Current LOS: 1 Anticipated DC Date: Planned Disposition: Home with Home Health Primary Insurance: MEDICARE A & B Discharge Planning Comments: CM met with patient to complete initial dc planning assessment. CM educated patient on the CM role and verbal consent given by patient to complete assessment. Patient lives at home with his . At discharge patient plans to return and feels this is a safe discharge. CM discussed availability of home health, rehab services, and medical equipment. Patient's states she would like to have home health this time and JOSE for [facility]. I spoke with Becky and clinical faxed. Becky states they can admit him on Monday. CM will continue to follow and will assist as needed with dc plans/needs. Tap And Die Maker Technician: Georgiana Santana DCPIA - Discharge Planning Initial Assessment Updated by [email or web address]: Georgiana Santana on 07/22/19 4:43 pm * Is the patient Alert and Oriented? Yes * How many steps to enter\exit or inside your home? 1/0 * PCP Dr. Gilbert * Pharm[facility] on [address] * Preadmission Environment Home with Family * ADLs Partial Dependent * Partial ADLs (Assistance needed) Ambulation * Equipment Cane CPAP Nebulizer Other Oxygen Rolling Walker Wheelchair * Other Equipment Portable oxygen * List name and contact numbers for known caregivers / representatives who currently or will assist patient after discharge: Rosetta Lala - - [phone] * Verbal permission to speak to the caregivers and representatives has been obtained from the patient. Yes * Community resources currently utilized None * Please name any agencies selected above. DME is [facility] for oxygen * Additional services required to return to the preadmission environment? No * Can the patient safely return to the preadmission environment? Yes * Has this patient been hospitalized within the prior 30 days at any hospital? Yes External Providers External Provider: [facility] Next Contact Date: Service Request Date: Service Type: Resolution: Reviewer: Comments: Coverage Notice Reviewer: [email or web address] Margarita Santana Notice Issued Date-Time: 07/22/2019 16:45 Notice Type: Patient Choice Letter Notice Delivered To: Family Member Relationship to Patient: Spouse Genetic Scientist Name: Rosetta Delivery Method: HAND - Hand Delivered Karin Days: Prior Verbal Notification: Recipient Understood Notice: Yes Recipient Signature: Yes Med Rec Note Co-signed by Attending: Coverage Notice Comment: [facility] for [facility] Last DP export: 07/22/19 3:47 pm Patient Name: TYLER LALA Page 59383 at 1129 All edits/amendments must be made on the electronic document DICTATION DATE: 07/25/19 112 BROTHEL KEEPER: ANGELA 07/25/19 1129 RPT#: [id number] DC DATE: STATUS: ADM IN [facility] [address] [place] [address] END OF REPORT
--- NOTE | 2019-07-25 11:40 | MORECARE ---
CASE MANAGEMENT DISCHARGE SUMMARY PATIENT: TYLER KNIGHT UNIT: [id number] ADM DATE: 07/21/19 AGE: 79 : 40 SEX: M ROOM/BED: D.2228 AUTHOR: ROBINSON ZAPATA PHYSICIAN: REFERRING PHYSICIAN: JAMARI DEL REAL MD DATE OF SERVICE: 07/25/19 Discharge Plan Patient Name: TYLER KNIGHT Facility: [facility]:[place] : 1940 Planned Disposition: Home with Home Health Anticipated Discharge Date: Discharge Date: Expected LOS: Initial Reviewer: [email or web address] Initial Review Date: 07/22/2019 Generated: 07/25/19 12:40 pm Comments DCP- Discharge Planning Updated by [email or web address]: Georgiana Tylerwu on 07/25/19 10:[address] Met with patient and he states they are thinking of going to [facility] for therapy. He asked that I call his . I called his and she states that she would like him to go to [facility] for Alf. She understands that he will be staying there and agrees that he needs this at this time. I called and left a message with Maya Tidwell at [facility] and clinical faxed. CM will continue to follow and assist with discharge planning/needs. DCP- Discharge Planning Updated by [email or web address]: Georgiana Tylerwu on 07/22/19 3:[address] Patient Name: TYLER KNIGHT Admission Status: ER Accout number: [id number] Admission Date: 07-21-2019 : 1940 Admission Diagnosis:HEMATURIA, UNSPECIFIED Attending: JAMARI DEL REAL Current LOS: 1 Anticipated DC Date: Planned Disposition: Home with Home Health Primary Insurance: MEDICARE A & B Discharge Planning Comments: CM met with patient to complete initial dc planning assessment. CM educated patient on the CM role and verbal consent given by patient to complete assessment. Patient lives at home with his . At discharge patient plans to return and feels this is a safe discharge. CM discussed availability of home health, rehab services, and medical equipment. Patient's states she would like to have home health this time and JOSE for [facility]. I spoke with Becky and clinical faxed. Becky states they can admit him on Monday. CM will continue to follow and will assist as needed with dc plans/needs. Board Filler: Georgiana Tylerwu DCPIA - Discharge Planning Initial Assessment Updated by [email or web address]: Georgiana Santana on 07/22/19 4:43 pm * Is the patient Alert and Oriented? Yes * How many steps to enter\exit or inside your home? 1/0 * PCP Dr. Gilbert * Pharmacy [facility] on [address] * Preadmission Environment Home with Family * ADLs Partial Dependent * Partial ADLs (Assistance needed) Ambulation * Equipment Cane CPAP Nebulizer Other Oxygen Rolling Walker Wheelchair * Other Equipment Portable oxygen * List name and contact numbers for known caregivers / representatives who currently or will assist patient after discharge: Rosetta Knight - [facility] - [phone] * Verbal permission to speak to the caregivers and representatives has been obtained from the patient. Yes * Community resources currently utilized None * Please name any agencies selected above. DME is [facility] for oxygen * Additional services required to return to the preadmission environment? No * Can the patient safely return to the preadmission environment? Yes * Has this patient been hospitalized within the prior 30 days at any hospital? Yes Coverage Notice Reviewer: [email or web address] - Georgiana Santana Notice Issued Date-Time: 07/22/2019 16:45 Notice Type: Patient Choice Letter Notice Delivered To: Family Member Relationship to Patient: Spouse Motor Teacher Name: Rosetta Delivery Method: HAND - Hand Delivered Karin Days: Prior Verbal Notification: Recipient Understood Notice: Yes Recipient Signature: Yes Med Rec Note Co-signed by Attending: Coverage Notice Comment: JOSE for [facility] Last DP export: 07/25/19 10:29 a Patient Name: TYLER KNIGHT Page 94165 at 1140 All edits/amendments must be made on the electronic document DICTATION DATE: 07/25/19 113 ENROBING MACHINE FEEDER: ANGELA 07/25/19 1139 RPT#: [id number] DC DATE: STATUS: [facility]M [facility] [address] [place] [address] END OF REPORT
[2019-07-25 12:49] VITALS: BP 138/75
--- NOTE | 2019-07-25 13:57 | MORECARE ---
CASE MANAGEMENT DISCHARGE SUMMARY PATIENT: TYLER LALA UNIT: [id number] ADM DATE: 07/21/19 AGE: 79 : 40 SEX: M ROOM/BED: D.2228 AUTHOR: JODIDOC PHYSICIAN: REFERRING PHYSICIAN: JAMARI DEL REAL MD DATE OF SERVICE: 07/25/19 Discharge Plan Patient Name: TYLER LALA Facility: [facility]:[place] : 1940 Planned Disposition: Home with Home Health Anticipated Discharge Date: Discharge Date: Expected LOS: Initial Reviewer: [email or web address] Initial Review Date: 07/22/2019 Generated: 07/25/19 2:56 pm Comments DCP- Discharge Planning Updated by [email or web address]: Georgiana Santana on 07/25/19 12:[address] Received a call from Maya at [facility] and he is accepted and they will pick him up tomorrow at 11:00. I informed Nyasia Bunn APN. I informed the patient and his and they are in agreement to discharge plan. I notified Becky with [facility]. CM will continue to follow and assist with discharge planning/needs. DCP- Discharge Planning Updated by [email or web address]: Georgiana Santana on 07/25/19 10:[address] Met with patient and he states they are thinking of going to [facility] for therapy. He asked that I call his . I called his and she states that she would like him to go to [facility] for Residential. She understands that he will be staying there and agrees that he needs this at this time. I called and left a message with Maya Tidwell at [facility] and clinical faxed. CM will continue to follow and assist with discharge planning/needs. DCP- Discharge Planning Updated by [id number]: Georgiana Santana on 07/22/19 3:[address] Patient Name: TYLER LALA Admission Status: ER Accout number: [id number] Admission Date: 07-21-2019 : 1940 Admission Diagnosis:HEMATURIA, UNSPECIFIED Attending: JAMARI DEL REAL Current LOS: 1 Anticipated DC Date: Planned Disposition: Home with Home Health Primary Insurance: MEDICARE A & B Discharge Planning Comments: CM met with patient to complete initial dc planning assessment. CM educated patient on the CM role and verbal consent given by patient to complete assessment. Patient lives at home with his . At discharge patient plans to return and feels this is a safe discharge. CM discussed availability of home health, rehab services, and medical equipment. Patient's states she would like to have home health this time and JOSE for [facility]. I spoke with Becky and clinical faxed. Becky states they can admit him on Monday. CM will continue to follow and will assist as needed with dc plans/needs. Director Of Student Services: Georgiana Santana DCPIA - Discharge Planning Initial Assessment Updated by [email or web address]: Georgiana Santana on 07/22/19 4:43 pm * Is the patient Alert and Oriented? Yes * How many steps to enter\exit or inside your home? 1/0 * PCP Dr. Gilbert * Pharmacy [facility] on [address] * Preadmission Environment Home with Family * ADLs Partial Dependent * Partial ADLs (Assistance needed) Ambulation * Equipment Cane CPAP Nebulizer Other Oxygen Rolling Walker Wheelchair * Other Equipment Portable oxygen * List name and contact numbers for known caregivers / representatives who currently or will assist patient after discharge: Rosetta Lala - - [phone] * Verbal permission to speak to the caregivers and representatives has been obtained from the patient. Yes * Community resources currently utilized None * Please name any agencies selected above. DME is [facility] for oxygen * Additional services required to return to the preadmission environment? No * Can the patient safely return to the preadmission environment? Yes * Has this patient been hospitalized within the prior 30 days at any hospital? Yes Coverage Notice Reviewer: [id number] Margarita Santana Notice Issued Date-Time: 07/22/2019 16:45 Notice Type: Patient Choice Letter Notice Delivered To: Family Member Relationship to Patient: Spouse Player Manager Name: Rosetta Delivery Method: HAND - Hand Delivered Karin Days: Prior Verbal Notification: Recipient Understood Notice: Yes Recipient Signature: Yes Med Rec Note Co-signed by Attending: Coverage Notice Comment: JO[facility] for [facility] Reviewer: [id number] Margarita Santana Notice Issued Date-Time: 07/25/2019 13:40 Notice Type: Patient Choice Letter Notice Delivered To: Family Member Relationship to Patient: Spouse Player Manager Name: Rosetta Delivery Method: PHONE - Phone Karin Days: Prior Verbal Notification: Recipient Understood Notice: Yes Recipient Signature: Med Rec Note Co-signed by Attending: Coverage Notice Comment: [facility] for [facility] Last DP export: 07/25/19 10:40 a Patient Name: TYLER LALA Page [id number] at 1357 All edits/amendments must be made on the electronic document DICTATION DATE: 07/25/191355 WEB CONTENT MANAGER: ANGELA 07/25/19 135 RPT#: [id number] DC DATE: STATUS: ADM IN [facility] [address] [place] [address] END OF REPORT
--- NOTE | 2019-07-25 14:10 | NUR ---
Nutrition follow-up: Diet: AHA Pt ate 100% of breakfast. RDN instructed pt on Coumadin diet. Labs reviewed WT: 217# Labs reviewed Pt with good po intake at this time. RDN following.
--- NOTE | 2019-07-25 14:46 | NUR ---
I have reviewed this patient and I concur with the Shift Assessment completed by the Licensed Practical Nurse today this shift.
[2019-07-25 16:27] VITALS: BP 127/64
[2019-07-25 20:00] VITALS: BP 136/79
[2019-07-26] VITALS: BP 120/72
--- NOTE | 2019-07-26 01:02 | NUR ---
PATIENT IN BED RESTING ALERT AND ORENTED ABLE TO VOICE NEEDS AND WANTS TO STAFF. IV TO LEFT FR WITH NS AT 50. STATED HE WAS GOING TO [facility] TOMORROW AT 11AM. BI PAP FROM HOME TO SLEEP WITH. CALL LIGHT AND WATER IN REACH BED LOW.
[2019-07-26 04:00] VITALS: BP 132/78
[2019-07-26 07:36] LABS: INR 1.57 (0.85-1.17); PROTIME 18.2 SECONDS (11.6-15.0)
--- NOTE | 2019-07-26 07:43 | NUR ---
PATIENT ALERT AND ORIENTED. PATIENT UP USING THE BATHROOM. ASSISTED BACK TO HIS BED WHEN DONE. ENCOURAGED TO CALL WITH ANY NEEDS. CALL LIGHT AND TABLE IN REACH.
[2019-07-26 07:52] LABS: ALBUMIN 2.6 g/dL (3.4-5.0); ALKALINE PHOSPHATASE 83 U/L (46-116); ALT (SGPT) 22 U/L (10-68); BILIRUBIN - TOTAL 0.38 mg/dL (0.2-1.3); CALC OSMOLALITY 284 mosm/kg (275-300); CARBON DIOXIDE 31.8 mmol/L (21.0-32.0); CHLORIDE - SERUM 111 mmol/L (98-107); CREATININE - SERUM 0.7 mg/dL (0.6-1.3); GLUCOSE 86 mg/dL (74-106); POTASSIUM - SERUM 3.8 mmol/L (3.5-5.1); PROTEIN - SERUM 5.8 g/dL (6.4-8.2); SODIUM 145 mmol/L (136-145); UREA NITROGEN 5 mg/dL (7-18); eGFR NON AFRICAN AMERICAN > 90 mL/min (90-120)
[2019-07-26 07:54] LABS: BASOPHILS 0.3 % (0-2); EOSINOPHILS 5.2 % (0-7); HEMATOCRIT 43.1 % (42.0-54.0); HEMOGLOBIN 14.2 g/dL (13.5-17.5); IMMATURE GRANULOCYTES 0.3 % (0-5); LYMPHOCYTES 24.7 % (15-50); MCH 30.7 pg (26.0-34.0); MCHC 32.9 g/dL (31.0-37.0); MCV 93.1 fL (80.0-100.0); MONOCYTES 8.7 % (2-11); NEUTROPHILS 60.8 % (40-80); PLATELET COUNT 142 10x3/uL (130-400); RBC 4.63 10x6/uL (4.20-6.10); RDW 13.7 % (11.5-14.5); WBC 3.4 10x3/uL (4.8-10.8)
[2019-07-26 08:09] VITALS: BP 135/79
[2019-07-26] MEDS ORDERED: LOVENOX INJ100 MG/ML SC (08:34)
[2019-07-26] MEDS ORDERED: COUMADIN6 MG PO (08:34)
--- NOTE | 2019-07-26 08:47 | MORECARE ---
CASE MANAGEMENT DISCHARGE SUMMARY PATIENT: TYLER LALA UNIT: [id number] ADM DATE: 07/21/19 AGE: 79 : 40 SEX: M ROOM/BED: D.2228 AUTHOR: JODI,DOC PHYSICIAN: REFERRING PHYSICIAN: JAMARI DEL REAL MD DATE OF SERVICE: 07/26/19 Discharge Plan Patient Name: TYLER LALA Facility: [facility]:[place] : 1940 Planned Disposition: Home with Home Health Anticipated Discharge Date: Discharge Date: Expected LOS: Initial Reviewer: [email or web address] Initial Review Date: 07/22/2019 Generated: 07/26/19 9:47 am Comments DCP- Discharge Planning Updated by [id number]: Georgiana Santana on 07/26/19 7:[address] Received order for discharge. I spoke with Maya Tidwell at [facility] and they will bulk picker at 11:00. Clinical, DC order, Med list, Mar faxed. Lara given number to call report. insurance coordinator informed of 1100 bulk picker time. He is discharging to a skilled bed at [facility]. DCP- Discharge Planning Updated by [email or web address]: Georgiana Esther on 07/25/19 12:[address] Received a call from Maya at [facility] and he is accepted and they will pick him up tomorrow at 11:00. I informed Nyasia Bunn APN. I informed the patient and his and they are in agreement to discharge plan. I notified Becky with [facility]. CM will continue to follow and assist with discharge planning/needs. DCP- Discharge Planning Updated by [id number]: Georgiana Esther on 07/25/19 10:[address] Met with patient and he states they are thinking of going to [facility] for therapy. He asked that I call his . I called his and she states that she would like him to go to [facility] for Ch[facility]. She understands that he will be staying there and agrees that he needs this at this time. I called and left a message with Maya Tidwell at [facility] and clinical faxed. CM will continue to follow and assist with discharge planning/needs. DCP- Discharge Planning Updated by [email or web address]: Georgiana Santana on 07/22/19 3:[address] Patient Name: TYLER LALA Admission Status: ER Accout number: [id number] Admission Date: 07-21-2019 : 1940 Admission Diagnosis:HEMATURIA, UNSPECIFIED Attending: JAMARI DEL REAL Current LOS: 1 Anticipated DC Date: Planned Disposition: Home with Home Health Primary Insurance: MEDICARE A & B Discharge Planning Comments: CM met with patient to complete initial dc planning assessment. CM educated patient on the CM role and verbal consent given by patient to complete assessment. Patient lives at home with his . At discharge patient plans to return and feels this is a safe discharge. CM discussed availability of home health, rehab services, and medical equipment. Patient's states she would like to have home health this time and JOSE for [facility]. I spoke with Becky and clinical faxed. Becky states they can admit him on Monday. CM will continue to follow and will assist as needed with dc plans/needs. Showcase Maker: Georgiana Esther DCPIA - Discharge Planning Initial Assessment Updated by [email or web address]: Georgiana Santana on 07/22/19 4:43 pm * Is the patient Alert and Oriented? Yes * How many steps to enter\exit or inside your home? 1/0 * PCP Dr. Gilbert * Pharmacy [facility] on [address] by [address] * Preadmission Environment Home with Family * ADLs Partial Dependent * Partial ADLs (Assistance needed) Ambulation * Equipment Cane CPAP Nebulizer Other Oxygen Rolling Walker Wheelchair * Other Equipment Portable oxygen * List name and contact numbers for known caregivers / representatives who currently or will assist patient after discharge: Rosetta Lala - - [phone] * Verbal permission to speak to the caregivers and representatives has been obtained from the patient. Yes * Community resources currently utilized None * Please name any agencies selected above. DME is [employer] [facility] for oxygen * Additional services required to return to the preadmission environment? No * Can the patient safely return to the preadmission environment? Yes * Has this patient been hospitalized within the prior 30 days at any hospital? Yes Coverage Notice Reviewer: [id number] - Georgiana Santana Notice Issued Date-Time: 07/22/2019 16:45 Notice Type: Patient Choice Letter Notice Delivered To: Family Member Relationship to Patient: Spouse Processing Assistant Name: Rosetta Delivery Method: HAND - Hand Delivered Karin Days: Prior Verbal Notification: Recipient Understood Notice: Yes Recipient Signature: Yes Med Rec Note Co-signed by Attending: Coverage Notice Comment: [facility] for [facility] Reviewer: [id number] Margarita Santana Notice Issued Date-Time: 07/25/2019 13:40 Notice Type: Patient Choice Letter Notice Delivered To: Family Member Relationship to Patient: Spouse Processing Assistant Name: Rosetta Delivery Method: PHONE - Phone Karin Days: Prior Verbal Notification: Recipient Understood Notice: Yes Recipient Signature: Med Rec Note Co-signed by Attending: Coverage Notice Comment: JOSE for [facility] Reviewer: [id number] Margarita Santana Notice Issued Date-Time: 07/25/2019 15:37 Notice Type: IM Discharge Notice Notice Delivered To: Patient Relationship to Patient: Self Processing Assistant Name: Delivery Method: HAND - Hand Delivered Karin Days: Prior Verbal Notification: Recipient Understood Notice: Yes Recipient Signature: Yes Med Rec Note Co-signed by Attending: Coverage Notice Comment: IMM explained, signed, given, copy placed in MR. Spouse also in the room and voiced understanding. Last DP export: 07/25/19 12:57 p Patient Name: TYLER LALA Page [id number] at 0847 All edits/amendments must be made on the electronic document DICTATION DATE: 07/26/19846 COMPUTER ARCHITECT: ANGELA 07/26/19846 RPT#: [id number] DC DATE: STATUS: ADM IN [facility] [address] [place] [address] END OF REPORT
--- NOTE | 2019-07-26 16:56 | MORECARE ---
CASE MANAGEMENT DISCHARGE SUMMARY PATIENT: TYLER LALA UNIT: [id number] ADM DATE: 07/21/19 AGE: 79 : 40 SEX: M ROOM/BED: D.2228 AUTHOR: JODI,DOC PHYSICIAN: REFERRING PHYSICIAN: JAMARI DEL REAL MD DATE OF SERVICE: 07/26/19 Discharge Plan Patient Name: TYLER LALA Facility: [facility]:[place] : 1940 Planned Disposition: Home with Home Health Anticipated Discharge Date: Discharge Date: 07/26/2019 Expected LOS: 0 Initial Reviewer: [email or web address] Initial Review Date: 07/22/2019 Generated: 07/26/19 5:56 pm Comments DCP- Discharge Planning Updated by [email or web address]: Georgiana Esther on 07/26/19 7:[address] Received order for discharge. I spoke with Maya Tidwell at [facility] and they will quill picking machine operator at 11:00. Clinical, DC order, Med list, Mar faxed. Lara given number to call report. patient safety coordinator informed of 1100 quill picking machine operator time. He is discharging to a skilled bed at [facility]. DCP- Discharge Planning Updated by [email or web address]: Georgiana Esther on 07/25/19 12:[address] Received a call from Maya at [facility] and he is accepted and they will pick him up tomorrow at 11:00. I informed Nyasia Bunn APN. I informed the patient and his and they are in agreement to discharge plan. I notified Becky with [facility]. CM will continue to follow and assist with discharge planning/needs. DCP- Discharge Planning Updated by [id number]: Georgiana Tylerwu on 07/25/19 10:[address] Met with patient and he states they are thinking of going to [facility] for therapy. He asked that I call his . I called his and she states that she would like him to go to [facility] for Intermediate. She understands that he will be staying there and agrees that he needs this at this time. I called and left a message with Maya Tidwell at [facility] and clinical faxed. CM will continue to follow and assist with discharge planning/needs. DCP- Discharge Planning Updated by [email or web address]: Georgiana Santana on 07/22/19 3:[address] Patient Name: TYLER LALA Admission Status: ER Accout number: [id number] Admission Date: 07-21-2019 : 1940 Admission Diagnosis:HEMATURIA, UNSPECIFIED Attending: JAMARI DEL REAL Current LOS: 1 Anticipated DC Date: Planned Disposition: Home with Home Health Primary Insurance: MEDICARE A & B Discharge Planning Comments: CM met with patient to complete initial dc planning assessment. CM educated patient on the CM role and verbal consent given by patient to complete assessment. Patient lives at home with his . At discharge patient plans to return and feels this is a safe discharge. CM discussed availability of home health, rehab services, and medical equipment. Patient's states she would like to have home health this time and JOSE for [facility]. I spoke with Becky and clinical faxed. Becky states they can admit him on Monday. CM will continue to follow and will assist as needed with dc plans/needs. Face Burler: Georgiana Esther DCPIA - Discharge Planning Initial Assessment Updated by [email or web address]: Georgiana Santana on 07/22/19 4:43 pm * Is the patient Alert and Oriented? Yes * How many steps to enter\exit or inside your home? 1/0 * PCP Dr. Gilbert * Pharmacy [facility] on [address] * Preadmission Environment Home with Family * ADLs Partial Dependent * Partial ADLs (Assistance needed) Ambulation * Equipment Cane CPAP Nebulizer Other Oxygen Rolling Walker Wheelchair * Other Equipment Portable oxygen * List name and contact numbers for known caregivers / representatives who currently or will assist patient after discharge: Rosetta Lala - - [phone] * Verbal permission to speak to the caregivers and representatives has been obtained from the patient. Yes * Community resources currently utilized None * Please name any agencies selected above. DME is [facility] for oxygen * Additional services required to return to the preadmission environment? No * Can the patient safely return to the preadmission environment? Yes * Has this patient been hospitalized within the prior 30 days at any hospital? Yes Coverage Notice Reviewer: [id number] - Georgiana Santana Notice Issued Date-Time: 07/22/2019 16:45 Notice Type: Patient Choice Letter Notice Delivered To: Family Member Relationship to Patient: Spouse Body Repairer Name: Rosetta Delivery Method: HAND - Hand Delivered Karin Days: Prior Verbal Notification: Recipient Understood Notice: Yes Recipient Signature: Yes Med Rec Note Co-signed by Attending: Coverage Notice Comment: [facility] for [facility] Reviewer: [id number] Margarita Santana Notice Issued Date-Time: 07/25/2019 13:40 Notice Type: Patient Choice Letter Notice Delivered To: Family Member Relationship to Patient: Spouse Body Repairer Name: Rosetta Delivery Method: PHONE - Phone Karin Days: Prior Verbal Notification: Recipient Understood Notice: Yes Recipient Signature: Med Rec Note Co-signed by Attending: Coverage Notice Comment: JOSE for [facility] Agarwal Reviewer: [id number] Margarita Santana Notice Issued Date-Time: 07/25/2019 15:37 Notice Type: IM Discharge Notice Notice Delivered To: Patient Relationship to Patient: Self Body Repairer Name: Delivery Method: HAND - Hand Delivered Karin Days: Prior Verbal Notification: Recipient Understood Notice: Yes Recipient Signature: Yes Med Rec Note Co-signed by Attending: Coverage Notice Comment: IMM explained, signed, given, copy placed in MR. Spouse also in the room and voiced understanding. Last DP export: 07/26/19 7:47 a Patient Name: TYLER LALA Page 52385 at 1656 All edits/amendments must be made on the electronic document DICTATION DATE: 07/26/191655 TOOL MACHINIST: ANGELA 07/26/191655 RPT#: [id number] DC DATE:07/26/19 STATUS: DIS IN [facility] [address] [place] [address] END OF REPORT
== END 2019-07-26 11:36 | DRG 673 ==
LOC: D.ER 07:17 → D.MS 11:57
PROVIDERS: Emergency Medicine; Specialist; ADMIT Internal Medicine Nephrology; ATTEND Internal Medicine Nephrology
PROC: 06H03DZ Insertion of Intraluminal Device into Inferior Vena Cava, Percutaneous Approach (ICD-10-PCS; 2019-07-22)
PROC: B50 Imaging, Veins, Plain Radiography (ICD-10-PCS; principal; 2019-07-22 10:47)
DX: R31.9 Hematuria, unspecified (principal); J96.21 Acute and chronic respiratory failure with hypoxia; I26.99 Other pulmonary embolism without acute cor pulmonale; I82.401 Acute embolism and thrombosis of unspecified deep veins of right lower extremity; E87.6 Hypokalemia; Z79.01 Long term (current) use of anticoagulants; I11.0 Hypertensive heart disease with heart failure; I25.10 Atherosclerotic heart disease of native coronary artery without angina pectoris; I50.9 Heart failure, unspecified; J44.9 Chronic obstructive pulmonary disease, unspecified; K21.9 Gastro-esophageal reflux disease without esophagitis; M19.90 Unspecified osteoarthritis, unspecified site; F32.9 Major depressive disorder, single episode, unspecified; G47.33 Obstructive sleep apnea (adult) (pediatric); E04.1 Nontoxic single thyroid nodule; E66.9 Obesity, unspecified; Z68.31 Body mass index [BMI] 31.0-31.9, adult; K58.9 Irritable bowel syndrome, unspecified; N40.0 Benign prostatic hyperplasia without lower urinary tract symptoms; K63.5 Polyp of colon; E78.5 Hyperlipidemia, unspecified; K57.90 Diverticulosis of intestine, part unspecified, without perforation or abscess without bleeding; R53.81 Other malaise; M54.30 Sciatica, unspecified side; Z86.711 Personal history of pulmonary embolism

== ENCOUNTER → 2019-10-04 15:45 | Outpatient (CLI) | payer MEDICARE ==
[2019-07-22 12:41] VITALS: BMI 31.2
[~2019-10-04 15:45] MED LIST changes: +COUMADIN6 MG PO; +LOVENOX INJ100 MG/ML SC
== END | disposition home or self-care (01) ==
LOC: D.RT 09-04 09:30
PROVIDERS: ATTEND Internal Medicine Pulmonary Disease
DX: J98.4 Other disorders of lung (principal)

== ENCOUNTER → 2019-10-31 09:29 | Outpatient (CLI) | payer MEDICARE ==
[2019-07-22 12:41] VITALS: BMI 31.2
== END | disposition home or self-care (01) ==
LOC: D.US 09:29
PROVIDERS: ATTEND Specialist
DX: I82.401 Acute embolism and thrombosis of unspecified deep veins of right lower extremity (principal)

== ENCOUNTER → 2019-11-15 10:00 | Outpatient (CLI) | payer MEDICARE ==
[2019-07-22 12:41] VITALS: BMI 31.2
== END | disposition home or self-care (01) ==
LOC: D.CT 10:00
PROVIDERS: ATTEND Internal Medicine Pulmonary Disease
DX: I26.99 Other pulmonary embolism without acute cor pulmonale (principal)